=== PATIENT | female | born 1940 | race Caucasian/White ===

== ENCOUNTER → 2016-06-24 10:58 | Outpatient (CLI) | payer MEDICARE ==
[2013-11-19 06:38] VITALS: BMI 32.3
[~2016-06-24 10:58] MED LIST: CARDURA2 MG PO; HYZAAR 100-25 T1 TAB PO; NORVASC10 MG PO; RELAFEN500 MG PO; SYNTHROID150 MCG PO; ULTRAM50 MG PO; VITAMIN B-1000 MCG/M IM; ZESTORETIC 20-1 EACH PO
== END | disposition home or self-care (01) ==
LOC: D.CT 10:58
DX: R10.32 Left lower quadrant pain (principal)

== ENCOUNTER 2017-08-23 11:01 | Outpatient (CLI) | payer MEDICARE ==
[~2017-08-23] VITALS: Ht 165.1 cm; Wt 80.0 kg
--- NOTE | ~2017-08-23 | OP ---
PATIENT NAME: QUITA TERRY MEDICAL RECORD: [id number] :38 LOCATION:D.CAT ADMISSION DATE: SURGEON: HI SMITH MD DATE OF OPERATION: 08/23/2017 PROCEDURE: Left heart catheterization, selective coronary angiography, right radial approach. CATHETERS: Right radial sheath, Hinsdale catheter for diagnostics. The procedure was well tolerated, the patient returned to hobbs, sheath removed after intervention. FINDINGS: Left ventriculography in 30-degree GONZALEZ view: Normal wall motion, normal systolic function. CORONARY ANATOMY: LEFT MAIN: Left main is free of disease. LAD: LAD is free of disease. CIRCUMFLEX: Circumflex has about 80% stenosis in its mid portion, fairly discrete. RIGHT CORONARIES: Somewhat codominant system with right being smaller artery at 70% to 80% stenosis in mid portion. PLAN: Intervention of circumflex ____ in a staged fashion. An EBU 3.5 guiding catheter provided excellent guide catheter support followed by 300 cm Whisper wire placed across all occluded circumflex down this portion of vessel. Stent deployed was a ____ 12-mm Ihsan drug-eluting stent up to 14 atmospheres for 45 seconds. Final injection shows excellent resolution of 80% to 90% stenosis, no significant residual. AUDRA flow was 3 throughout the procedure. Integrilin was used in the case. Sheath was closed with a TR band. Plavix was loaded in the lab. TRANSINT:[id number] Voice Confirmation ID: [id number] DOCUMENT ID: [id number] HI SMITH MD at 1214 CC: [id number] DICTATION DATE: 08/23/17 1420 MANAGER RFID: 08/23/17 [id number] DEP CLI 08/23/17 [facility] [address] [id number]
--- NOTE | ~2017-08-23 | HEMODYNAMI ---
PATIENT:QUITA TERRY MEDICAL RECORD: [id number] : 38 LOCATION:[facility]AN ADMISSION DATE: 08/23/17 Generatedon:08/23/201714:24 Patient name: QUITA TERRY Patient #: [id number] SSN: [id number] : 1940 Date of study: 08/23/2017 Page: Of Hemodynamic Procedure Report Patient Data Patient Demographics Procedure consent was obtained First Name: QUITA Gender: Female Last Name: MARA : 1940 Middle Initial: C Age: 77 year(s) Patient #: [id number] Race: SSN: [id number] Additional ID: [id number] Contact details Address: [address] [place] [address] State: [place] City: [place] Zip code: [address] Admission Admission Data Admission Date: 08/23/2017 Admission Time: 11:01 Arrival Date: 08/23/2017 Arrival Time: 0:00 Admit Source: Other Insurance Payor: Medicare Height (in.): 64 BSA: 1.86 (m2) Height (cm.): 162.56 BMI: 30.38 (kg/m2) Weight (lbs.): 177 Weight (kg.): 80.29 Lab Results Lab Result Date: 08/23/2017 Lab Result Time: 0:00 Biochemistry Name Units Result Min Max BUN mg/dl 22 --(----)-* 7 18 Creatinine mg/dl 1.1 --(--*-)-- 0.6 1.3 CBC Name Units Result Min Max Hemoglobin g/dl 13 -*(----)-- 13.5 17.5 Procedure Procedure Types Cath Procedure Diagnostic Procedure [facility] w/Coronaries Sedation Charges Moderate Sedation up to 15 minutes PCI Procedure Coronary Stent Coronary Stent Initial Procedure Description Procedure Date Procedure Date: 08/23/2017 Procedure Start Time: 13:55 Procedure End Time: 14:18 Procedure Staff Name Function Korey Dodd MD Performing Physician Jody Avery RT Monitor Mary Gilliam RT Scrub Ric Tavarez RN Nurse Procedure Data Cath Procedure Fluoroscopy Diagnostic fluoroscopy Total fluoroscopy Time: 5.5 time: 5.5 min min Diagnostic fluoroscopy Total fluoroscopy dose: 650 dose: 650 mGy mGy Contrast Material Contrast Material Type Amount (ml) Isovue 300 67 Entry Location Entry Primary Successful Side Size Upsize Upsize Entry Closure Succes sful Closure Location (Fr) 1 (Fr) 2 (Fr) Remarks Device Remarks Radial Right 6 Fr Exoseal artery Short Estimated blood loss: 5 ml Diagnostic catheters Device Type Used For End Catheter Placement DIAGNOSTIC [place] 110cm 5 Multi-vessel Fr catheter ([id number]) Angiography Procedure Complications No complications Procedure Medications Medication Administration Route Dosage Oxygen NC 2 l/min Lidocaine 2% added to field 20 Heparin Flush Bag added to field 2 bags (1000units/500ml NS) 0.9% NaCl I.V. 100 ml/hr Radial Cocktail I.A. 1 syringe (Verapomil 2mg/Nitro 400mcg/Heparin 1500units) Versed I.V. 1 mg Fentanyl I.V. 50 mcg Heparin Bolus I.V. 4000 units Integrilin (Bolus I.V. 7.3 ml 2mg/ml) Versed I.V. 1 mg Fentanyl I.V. 50 mcg Plavix P.O. 600 mg Hemodynamics Rest BSA: 1.86 (m2) HGB: 13 (g/dl) O2 Consumption: Estimated: 148.96 (ml/min) O2 Cons umption indexed: Estimated:80.09 (ml/min/m) Heart Rate: 43 (bpm) Pressure Samples Time Site Value (mmHg) Purpose Heart Use Rate(bpm) 13:59 LV 179/-10,-11 Snapshot 51 Gradients Valve Time Site Site Mean SEP/DFP Peak To Heart Use 1 2 (mmHg) (sec/min) Peak Rate (mmHg) (bpm) Aortic 14:00 LV AO 31 Snapshots Pre Cath Intra NCS Post Cath Vital Signs Time Heart Resp SPO2 etCO2 NIBP (mmHg) Rhythm Pain Sedation Rate (ipm) (%) (mmHg) Status Level (bpm) 13:10:36 41 14 98 0 189/79(165) NSR 0 (11) 10(A) , No pain 13:16:14 42 12 94 0 193/75(164) NSR 0 (11) 10(A) , No pain 13:21:42 42 13 94 0 191/75(158) NSR 0 (11) 10(A) , No pain 13:27:24 41 13 94 0 193/72(160) NSR 0 (11) 10(A) , No pain 13:32:58 40 15 96 0 196/76(162) NSR 0 (11) 10(A) , No pain 13:37:36 40 16 94 0 192/75(164) NSR 0 (11) 10(A) , No pain 13:43:00 43 13 94 0 192/85(167) NSR 0 (11) 10(A) , No pain 13:48:50 41 13 92 0 186/73(148) NSR 0 (11) 10(A) , No pain 13:53:22 41 15 96 0 175/77(147) NSR 0 (11) 10(A) , No pain 13:57:53 50 13 94 0 148/59(97) NSR 0 (11) 9(A) , No pain 14:02:09 50 15 97 11.9 119/56(104) NSR 0 (11) 9(A) , No pain 14:06:25 46 15 98 29.9 132/63(104) NSR 0 (11) 9(A) , No pain 14:10:29 46 16 98 28.4 107/61(95) NSR 0 (11) 9(A) , No pain 14:15:28 49 9 98 17.9 Measuring NSR 0 (11) 9(A) , No pain 14:15:36 48 10 98 17.9 147/71(127) NSR 0 (11) 10(A) , No pain Medications Time Medication Route Dose Verified Delivered Reason Note s Effectiveness by by 13:45:17 Oxygen NC 2 l/min Korey Larios used for [facility] Jim Tavarez RN procedure 13:45:25 Lidocaine 2% added 20ml Korey Arzolaory for local to vial Ju [facility] anesthetic field MD [place] 13:45:43 Heparin Flush added 2 bags Korey Larios used for Bag to [facility] Jim Tavarez metal mover (1000units/500ml field [place] NS) 13:45:51 0.9% NaCl I.V. 100 Korey Buffie Per physician ml/hr [facility] Jim Tavarez RN, MD 13:51:20 Versed I.V. 1 mg Korey Naikie for sedation [facility] Jim Tavarez RN, MD 13:51:25 Fentanyl I.V. 50 mcg Korey Niakie for sedation [facility] Jim Tavarez RN, MD 13:56:05 Radial Cocktail I.A. 1 Korey Nair for (Verapomil syringe [facility] Jim Dodd vasodilation 2mg/Nitro MD [place] 400mcg/Heparin 1500units) 14:05:38 Heparin Bolus I.V. 4000 Korey Larios for veri fied units [facility] Jim Tavarez RN anticoagulation with dr MD barnett 14:07:12 Integrilin I.V. 7.3 ml Korey Larios for (Bolus 2mg/ml) [facility] Jim Tavarez RN antiplatelet therapy 14:11:27 Versed I.V. 1 mg Korey Larios for sedation [facility] Jim Tavarez RN, MD 14:11:32 Fentanyl I.V. 50 mcg Korey Larios for sedation [facility] Jim Tavarez RN, MD 14:17:53 Plavix P.O. 600 mg Korey L[address] for [facility] Jim Tavarez RN antiplatelet therapy Procedure Log Time Note 12:49:37 Diagnostic Cath Status : Elective 12:49:55 Mary Gilliam RT(R) sent for patient. Start room use. 12:49:55 Time tracking: Regular hours (M-F 7:00 - 5:00) 12:50:00 Plan of Care:Hemodynamics will remain stable., Cardiac rhythm will remain stable., Comfort level will be maintained., Respiratory function will remain adequate., Patient/ family verbilizes understanding of procedure., Procedure tolerated without complication., Recovers from procedure without complications.. 12:55:04 Informed consent obtained and on chart 12:55:14 Insurance Payor : Medicare 12:55:15 Arrival Date: 08/23/2017 12:00:00 AM 12:55:17 Admit Source: Other 12:55:31 Patient Height : 64 inches 12:55:35 Patient Weight : 177 lbs 12:57:12 Lab Result : Hemoglobin 13 g/dl 12:57:12 Lab Result : Creatinine 1.1 mg/dl 12:57:12 Lab Result : BUN 22 mg/dl 12:57:55 Patient received from Pre/Post Procedure Room to [facility] 2 Alert and oriented. Tansferred to table in Supine position. 12:57:56 Warm blankets applied, and caroline hugger turned on for patient comfort. 12:57:57 Correct patient and procedure confirmed by team. 12:57:57 ECG and BP/O2 sat monitors applied to patient. 13:08:12 Vital chart was started 13:08:13 Baseline sample Acquired. 13:08:17 Rhythm: sinus bradycardia 13:08:19 Full Disclosure recording started 13:08:25 H&P Date Dictated: 08/23/2017 Within 30 days and on chart., H&P Addendum completed by physician on day of procedure. (MUST COMPLETE FOR ALL OUTPATIENTS). 13:08:26 Pre-procedure instructions explained to patient. 13:08:27 Pre-op teaching completed and patient verbalized understanding. 13:08:28 Family in waiting room. 13:08:30 Patient NPO since Midnight. 13:08:32 Is the patient allergic to Iodine/contrast media? No. 13:08:34 Was the patient premedicated? No 13:08:39 Is patient on blood thinner?No 13:09:04 Patient diabetic? No. 13:09:07 Previous problem with sedation/anesthesia? No ? 13:09:08 Snore? Yes 13:09:09 Sleep apnea? No 13:09:10 Deviated septum? No 13:09:11 Opens mouth fully? No 13:09:12 Sticks out tongue? Yes 13:09:14 Airway obstruction? No ? 13:09:20 Dentures? Yes in tight 13:09:24 Pre procedure: right dorsailis pedis pulse 1+ Palpable, but thready & weak; easily obliterated 13:09:26 Pre procedure: left dorsailis pedis pulse 1+ Palpable, but thready & weak; easily obliterated 13:09:28 Patient pain scale 0/10 ?. 13:09:35 IV patent on arrival in left forearm with 0.9% NaCl at [facility]. 13:09:37 Lab results completed and on chart. 13:09:47 Right Radial & Right Groin area was prepped with chlora-prep and draped in sterile fashion 13:09:48 Alarms reviewed by R. N. 13:09:48 Sharps counted by scrub and verified by R.N. 13:20:10 Zero performed for pressure channel P1 13:37:16 Physician arrived 13:37:16 --------ALL STOP TIME OUT------ 13:37:17 Final Timeout: patient, procedure, and site verified with staff and physician. All members of the team are in agreement. 13:37:21 Right Radial & Right Groin site verified by team. 13:37:23 Physical assessment completed. ASA score P 2 - A patient with mild systemic disease as per Korey Dodd MD. 13:37:27 Sedation plan: IV Moderate Sedation Medication:Versed, Fentanyl 13:38:11 Use device set Radial Dx or PCI 13:38:12 ACIST Syringe (61563) opened to sterile field. 13:38:13 Medline Cath Pack ([id number]) opened to sterile field. 13:38:13 Bag Decanter (2002S) opened to sterile field. 13:38:13 DIAGNOSTIC WIRE .035 260cm J wire (506512) opened to sterile field. 13:38:14 ACIST Hand Control (04815) opened to sterile field. 13:38:14 ACIST Manifold (08240) opened to sterile field. 13:38:15 Tegaderm 4 x 4 (1626W) opened to sterile field. 13:38:16 MBrace Wrist Support ([id number]) opened to sterile field. 13:38:17 SHEATH 6Fr Prelude Radial ([id number]) opened to sterile field. 13:45:17 Oxygen 2 l/min NC was administered by Ric Tavarez RN; used for procedure; 13:45:25 Lidocaine 2% 20ml vial added to field was administered by Korey Dodd MD; for local anesthetic; 13:45:43 Heparin Flush Bag (1000units/500ml NS) 2 bags added to field was administered by Ric Tavarez RN; used for procedure; 13:45:51 0.9% NaCl 100 ml/hr I.V. was administered by Ric Tavarez RN; Per physician; 13:51:20 Versed 1 mg I.V. was administered by Ric Tavarez RN; for sedation; 13:51:25 Fentanyl 50 mcg I.V. was administered by Ric Tavarez RN; for sedation; 13:55:00 Procedure started. 13:55:11 Local anesthetic to right radial artery with Lidocaine 2% by Korey Dodd MD.INITIAL ACCESS ONLY 13:55:26 A 6 Fr Short sheath was inserted into the Right Radial artery 13:55:57 A DIAGNOSTIC [place] 110cm 5 Fr catheter ([id number]) was advanced over the wire and used for Multi-vessel Angiography. 13:56:05 Radial Cocktail (Verapomil 2mg/Nitro 400mcg/Heparin 1500units) 1 syringe I.A. was administered by Korey Dodd MD; for vasodilation; 13:59:59 LV hemodynamics recorded. 14:00:00 LV gram done using GONZALEZ 14:00:03 Injector settings: Ml/sec: 5, Volume: 15, 14:00:09 EF : 55 % 14:01:16 LCA angiography performed. 14:01:18 Injector settings: Ml/sec: 3, Volume: 6, 14:02:01 RCA angiography performed. 14:02:04 Injector settings: Ml/sec: 3, Volume: 6, 14:02:48 Catheter removed. 14:03:09 GUIDE 6FR EBU 3.5 catheter ([id number]) opened to sterile field. 14:03:09 WHISPER 300cm guide wire ([id number]) opened to sterile field. 14:03:10 INFLATOR Merit BasixCompak (LB1445) opened to sterile field. 14:03:50 Proceeding to intervention. 14:04:02 6 Fr ebu 3.5 guide catheter was inserted over the wire 14:04:08 whisper wire advanced. 14:05:38 Heparin Bolus 4000 units I.V. was administered by Ric Tavarez RN; for anticoagulation; verified with dr barnett 14:07:12 Integrilin (Bolus 2mg/ml) 7.3 ml I.V. was administered by Ric Tavarez RN; for antiplatelet therapy; 14:07:16 Wire advanced across lesion. 14:11:27 Versed 1 mg I.V. was administered by Ric Tavarez RN; for sedation; 14:11:28 Place stent Inflation Number: 1 A PARK OTW 3.5 x 12 stent ([id number]) was prepped and advanced across the Mid CX. The stent was deployed at 12 MATT for 0:30 (min:sec). 14:11:32 Fentanyl 50 mcg I.V. was administered by Ric Tavarez RN; for sedation; 14:12:15 Stent catheter was removed intact over wire. 14:12:15 Wire removed. 14:12:16 Guide catheter removed. 14:13:50 Sheath removed intact; hemostasis achieved with Exoseal to the Right Radial artery. 14:13:51 Procedure ended.(Physican Out) 14:14:22 Fluoroscopy time 05.50 minutes. 14:14:27 Flurop Dose total: 650 14:14:27 Fluoroscopy dose: 650 mGy 14:15:27 Contrast amount:Isovue 300 67ml. 14:15:29 Sharps counted by scrub and verified by R.N. 14:15:33 TR band inflated with 10cc of air. 14:15:36 Insertion/operative site no bleeding no hematoma. 14:15:44 Post right radial artery:stable 14:15:45 Post Procedure Pulses reassessed and unchanged 14:16:05 Post procedure rhythm: unchanged. 14:16:08 Estimated blood loss: 5 ml 14:16:10 Post procedure instruction explained to patient.Patient verbalizes understanding. 14:16:12 Patient needs reinforcement of post procedure teaching. 14:16:39 Procedure type changed to Cath procedure, Diagnostic procedure, LHC, LHC w/Coronaries, Sedation Charges, Moderate Sedation up to 15 minutes, PCI procedure, Coronary Stent, Coronary Stent Initial 14:16:41 Procedure and supply charges have been captured, reviewed, submitted and are correct. 14:16:50 Procedure Complication : No complications 14:17:02 Vital chart was stopped 14:17:36 See physician's report for complete and final results. 14:17:42 Report given to Pre/Post Procedure Room. 14:17:46 Patient transfered to Pre/Post Procedure Room with Stretcher. 14:17:53 Plavix 600 mg P.O. was administered by Ric Tavarez RN; for antiplatelet therapy; 14:18:49 Procedure ended. 14:18:49 Full Disclosure recording stopped 14:20:12 TR BAND Standard ([id number]) opened to sterile field. 14:20:23 ACC-PCI Only Patient was given prescriptions, or instructed by Korey Dodd MD to start/continue the following medications upon discharge: Plavix 14:20:26 End room use (Document Last) Intervention Summary Intervention Notes Time ActionType Lesion and Equipment Action# Pressure Duration Attributes Used 14:11:28 Place stent Mid CX PARK OTW 3.5 1 12 00:30 x 12 stent ([id number]) Device Usage Item Name Manufacture Quantity Catalog Number Hospital Part Current Minimal Lot# / Charge Number Stock Stock Serial# Code ACIST Syringe Acist 1 10306 [id number] 947780 876698 20 (86519) Medical [employer] Inc Medline Cath Cardinal 1 [id number] 330965 37719 845959 5 Pack Health ([id number]) Bag Decanter Microtek 1 2001S 031501 48169 137561 5 (2001S) Medical Inc. DIAGNOSTIC WIRE St [place] 1 552374 362964 357127 835633 30 .035 260cm J wire (438585) ACIST Hand Acist 1 94407 130878 119657 394916 5 Control (20805) [employer] Inc ACIST Manifold Acist 1 37343 731695 570463 246860 5 (22619) Medical Systems Inc Tegaderm 4 x 4 3M 1 1626W 059331 671457 308968 5 (1626W) MBrace Wrist Advanced 1 140-0250-00 192663 45569 983530 5 Support Vascular ([id number]) Dynamics SHEATH 6Fr Merit 1 [id number] 401352 107833 576264 5 Prelude Radial Medical ([id number]) DIAGNOSTIC Terumo 1 40-5013 539055 797607 767495 5 [place] 110cm 5 Fr catheter (486668) GUIDE 6FR EBU Medtronic 1 [id number] 916885 14076 369355 3 3.5 catheter (JM2TPC54) WHISPER 300cm [place] 1 [id number] 954164 082297 915658 5 guide wire Vascular ([id number]) INFLATOR Merit Merit 1 [id number] 267073 742519 913268 15 BasixCompak Medical (JK8230) PARK OTW 3.5 x Medtronic 1 [id number] 986191 5482111 889631 5 [id number] 12 stent ([id number]) TR BAND Terumo 1 QHR56-[id number] 616023 897573 085895 40 Standard ([id number]) Signature Audit [place] Stage Time Signature Unsigned Intra-Procedure 08/23/2017 Jody Avery 2:24:22 PM RT(R) Signatures Monitor : Jody Avery RT Signature : Date : Time : [place] [id number] [place] [address]
[2017-08-23] MEDS ORDERED: KLOR-CON 88 MEQ PO (11:28)
[2017-08-23] MEDS ORDERED: FUROSEMIDE20 MG PO (11:30)
[2017-08-23] MEDS ORDERED: HCTZ25 MG PO (11:30)
[2017-08-23] MEDS ORDERED: CATAPRES0.1 MG PO (11:31)
[2017-08-23 11:35] VITALS: BP 198/57; Ht 165.1 cm; Wt 80.0 kg
[2017-08-23 11:49] LABS: BASOPHILS 0.8 % (0-2); EOSINOPHILS 1.3 % (0-7); HEMATOCRIT 37.4 % (36.0-48.0); LYMPHOCYTES 35.5 % (15-50); MCH 32.4 pg (26.0-34.0); MCHC 34.8 g/dL (31.0-37.0); MCV 93.3 fL (80.0-100.0); MEAN PLATELET VOLUME 11.3 fL (7.4-10.4); MONOCYTES 10.3 % (2-11); NEUTROPHILS 52.1 % (40-80); PLATELET COUNT 138 10x3/uL (130-400); RBC 4.01 10x6/uL (4.00-5.40); RDW 12.6 % (11.5-14.5); WBC 3.9 10x3/uL (4.8-10.8)
[2017-08-23 12:18] LABS: ANION GAP 12.1 mmol/L (8-16); CALCIUM 9.7 mg/dL (8.5-10.1); CARBON DIOXIDE 29.2 mmol/L (21.0-32.0); CREATININE - SERUM 1.1 mg/dL (0.6-1.3); POTASSIUM - SERUM 3.3 mmol/L (3.5-5.1)
[2017-08-23] MEDS ORDERED: PLAVIX75 MG PO (15:21)
== END 2017-08-23 18:04 | disposition home or self-care (01) ==
LOC: D.CATH 11:01
PROVIDERS: Internal Medicine Interventional Cardiology
DX: I25.119 Atherosclerotic heart disease of native coronary artery with unspecified angina pectoris (principal); R60.9 Edema, unspecified; I10 Essential (primary) hypertension; Z01.812 Encounter for preprocedural laboratory examination
CPT/HCPCS: 93458; C9600

== ENCOUNTER 2017-09-06 10:52 | Outpatient (CLI) | payer MEDICARE ==
[~2017-09-06] VITALS: Ht 165.1 cm; Wt 80.0 kg
--- NOTE | ~2017-09-06 | HEMODYNAMI ---
PATIENT:QUITA TERRY MEDICAL RECORD: [id number] : 38 LOCATION:[facility] ADMISSION DATE: 09/06/17 Generatedon:09/06/201714:44 Patient name: QUITA TERRY Patient #: [id number] SSN: [id number] : 1940 Date of study: 09/06/2017 Page: Of Hemodynamic Procedure Report Patient Data Patient Demographics Procedure consent was obtained First Name: QUITA Gender: Female Last Name: MARA : 1940 Middle Initial: C Age: 77 year(s) Patient #: [id number] Race: SSN: [id number] Additional ID: [id number] Contact details Address: [address] [place] [address] State: [place] City: [place] Zip code: [address] Past Medical History Allergies Allergen Reaction Date Comments Reported Aspirin 09/06/2017 Admission Admission Data Admission Date: 09/06/2017 Admission Time: 10:52 Procedure Procedure Types Cath Procedure Diagnostic Procedure Sedation Charges Moderate Sedation up to 15 minutes PCI Procedure Coronary Stent Coronary Stent Initial Procedure Description Procedure Date Procedure Date: 09/06/2017 Procedure Start Time: 14:27 Procedure End Time: 14:43 Procedure Staff Name Function Korey Dodd MD Performing Physician Marleny Vila RT Monitor Ric Tavarez RN Nurse Waylon Amanda RT Scrub Procedure Data Cath Procedure Fluoroscopy Diagnostic fluoroscopy Total fluoroscopy Time: 3.2 time: 3.2 min min Diagnostic fluoroscopy Total fluoroscopy dose: 171 dose: 171 mGy mGy Contrast Material Contrast Material Type Amount (ml) Isovue 370 26 Entry Location Entry Primary Successful Side Size Upsize Upsize Entry Closure Hooper ccessful Closure Location (Fr) 1 (Fr) 2 (Fr) Remarks Device Remarks Radial Right 6 Fr Mechanical artery Short Compression Estimated blood loss: 5 ml Procedure Complications No complications Procedure Medications Medication Administration Route Dosage Oxygen NC 2 l/min Lidocaine 2% added to field 20 Heparin Flush Bag added to field 2 bags (1000units/500ml NS) 0.9% NaCl I.V. 100 ml/hr Versed I.V. 2 mg Fentanyl I.V. 100 mcg Radial Cocktail I.A. 1 syringe (Verapomil 2mg/Nitro 400mcg/Heparin 1500units) Versed I.V. 1 mg Fentanyl I.V. 50 mcg Heparin Bolus I.V. 4000 units Versed I.V. 1 mg Fentanyl I.V. 50 mcg Hemodynamics Rest Heart Rate: 48 (bpm) Snapshots Pre Cath Intra NCS Post Cath Vital Signs Time Heart Resp SPO2 etCO2 NIBP (mmHg) Rhythm Pain Sedation Rate (ipm) (%) (mmHg) Status Level (bpm) 14:17:15 41 17 100 38.2 201/76(168) NSR 0 (11) 10(A) , No pain 14:23:07 40 16 100 31.4 181/74(135) NSR 0 (11) 10(A) , No pain 14:28:41 43 11 97 42 166/66(141) NSR 0 (11) 9(A) , No pain 14:33:01 48 15 97 18.7 131/65(91) NSR 0 (11) 9(A) , No pain 14:37:19 50 18 97 24.7 127/66(91) NSR 0 (11) 9(A) , No pain 14:42:43 50 15 99 22.5 138/65(116) NSR 0 (11) 10(A) , No pain Medications Time Medication Route Dose Verified Delivered Reason Note s Effectiveness by by 14:14:26 Oxygen NC 2 l/min Korey Larios used for [facility] Jim Tavarez RN procedure 14:14:34 Lidocaine 2% added 20ml Korey Nair for local to vial [facility] anesthetic field MD [facility] 14:14:39 Heparin Flush added 2 bags Korey Nair used for Bag to [facility] procedure (1000units/500ml field MD [place] NS) 14:14:48 0.9% NaCl I.V. 100 Korey Naikie Per physician ml/hr [facility] Jim Tavarez RN, MD 14:22:39 Versed I.V. 2 mg Korey Larios for sedation [facility] Tavarez RN, MD 14:22:44 Fentanyl I.V. 100 mcg Korey Larios for sedation [facility] Tavarez RN, MD 14:26:43 Versed I.V. 1 mg Korey Larios for sedation [facility] Tavarez RN, MD 14:26:47 Fentanyl I.V. 50 mcg Korey Larios for sedation [facility] Jim Tavarez RN, MD 14:30:10 Radial Cocktail I.A. 1 Korey Nair for (Verapomil syringe [facility] Jim Dodd vasodilation 2mg/Nitro MD [place] 400mcg/Heparin 1500units) 14:31:09 Heparin Bolus I.V. 4000 Korey Larios for veri fied units [facility] Jim Tavarez RN anticoagulation with dr MD barnett 14:39:49 Versed I.V. 1 mg Korey Larios for sedation [facility] Jim Tavarez RN, MD 14:39:52 Fentanyl I.V. 50 mcg Korey Larios for sedation [facility] Jim Tavarez RN, MD Procedure Log Time Note 13:57:54 Rci Tavarez RN sent for patient. Start room use. 13:57:55 Time tracking: Regular hours (M-F 7:00 - 5:00) 13:57:59 Plan of Care:Hemodynamics will remain stable., Cardiac rhythm will remain stable., Comfort level will be maintained., Respiratory function will remain adequate., Patient/ family verbilizes understanding of procedure., Procedure tolerated without complication., Recovers from procedure without complications.. 14:03:25 Patient received from Pre/Post Procedure Room to [facility] 2 Alert and oriented. Tansferred to table in Supine position. 14:03:26 Warm blankets applied, and caroline hugger turned on for patient comfort. 14:03:27 Correct patient and procedure confirmed by team. 14:03:28 Signed procedure consent form obtained from patient. 14:03:28 ECG and BP/O2 sat monitors applied to patient. 14:03:29 Full Disclosure recording started 14:14:26 Oxygen 2 l/min NC was administered by Ric Tavarez RN; used for procedure; 14:14:34 Lidocaine 2% 20ml vial added to field was administered by Korey Dodd MD; for local anesthetic; 14:14:39 Heparin Flush Bag (1000units/500ml NS) 2 bags added to field was administered by Korey Dodd MD; used for procedure; 14:14:48 0.9% NaCl 100 ml/hr I.V. was administered by Ric Tavarez RN; Per physician; 14:14:53 Vital chart was started 14:14:59 Rhythm: sinus bradycardia 14:15:19 H&P Date Dictated: 08/10/2017 Within 30 days and on chart., H&P Addendum completed by physician on day of procedure. (MUST COMPLETE FOR ALL OUTPATIENTS). 14:15:20 Pre-procedure instructions explained to patient. 14:15:21 Pre-op teaching completed and patient verbalized understanding. 14:15:24 Family in patients room. 14:15:25 Patient NPO since Midnight. 14:15:34 Patient allergic to Aspirin 14:15:36 Is the patient allergic to Iodine/contrast media? No. 14:15:38 Is patient on blood thinner?Yes 14:15:59 ACC The patient was administered the following blood thiners within the last 24 hours: ACCPlavix 14:16:01 Patient diabetic? No. 14:16:42 Previous problem with sedation/anesthesia? No ? 14:16:43 Snore? Yes 14:16:44 Sleep apnea? No 14:16:45 Deviated septum? No 14:16:46 Opens mouth fully? Yes 14:16:46 Sticks out tongue? Yes 14:16:48 Airway obstruction? No ? 14:16:50 Dentures? No ? 14:16:53 Pre procedure: right dorsailis pedis pulse 2+ Normal; easily identifiable; not easily obliterated 14:16:55 Modified Curtis's test Ulnar < 7 seconds 14:16:56 Patient pain scale 0/10 ?. 14:17:03 IV patent on arrival in left forearm with 0.9% NaCl at O. 14:17:05 Lab results completed and on chart. 14:17:08 Right Radial & Right Groin area was prepped with chlora-prep and draped in sterile fashion 14:17:09 Alarms reviewed by R. N. 14:17:09 Sharps counted by scrub and verified by R.N. 14:17:11 Use device set Radial Dx or PCI 14:17:12 ACIST Syringe (42097) opened to sterile field. 14:17:13 Medline Cath Pack ([id number]) opened to sterile field. 14:17:13 Bag Decanter (2002) opened to sterile field. 14:17:14 DIAGNOSTIC WIRE .035 260cm J wire (823378) opened to sterile field. 14:17:14 ACIST Hand Control (25168) opened to sterile field. 14:17:15 ACIST Manifold (19262) opened to sterile field. 14:17:16 Tegaderm 4 x 4 (1626W) opened to sterile field. 14:17:16 MBrace Wrist Support ([id number]) opened to sterile field. 14:17:18 SHEATH 6Fr Prelude Radial ([id number]) opened to sterile field. 14:17:26 Use device set SARAH PCI 14:17:33 WHISPER 300cm guide wire ([id number]) opened to sterile field. 14:17:34 INFLATOR Merit BasixCompak (OQ3415) opened to sterile field. 14:20:00 Baseline sample Acquired. 14:20:03 Final Timeout: patient, procedure, and site verified with staff and physician. All members of the team are in agreement. 14:20:06 Right Radial site verified by team. 14:20:09 Physical assessment completed. ASA score P 2 - A patient with mild systemic disease as per Korey Dodd MD. 14:20:11 Sedation plan: IV Moderate Sedation Medication:Versed, Fentanyl 14:22:39 Versed 2 mg I.V. was administered by Ric Tavarez RN; for sedation; 14:22:44 Fentanyl 100 mcg I.V. was administered by Ric Tavarez RN; for sedation; 14::43 Versed 1 mg I.V. was administered by Ric Tavarez RN; for sedation; 14::47 Fentanyl 50 mcg I.V. was administered by Ric Tavarez RN; for sedation; 14::50 Zero performed for pressure channel P1 14:26:53 GUIDE 6FR HS I catheter (LA6HSI) opened to sterile field. 14:27:30 Procedure started. 14:27:56 Local anesthetic to right radial artery with Lidocaine 2% by Korey Dodd MD.INITIAL ACCESS ONLY 14:29:46 A 6 Fr Short sheath was inserted into the Right Radial artery 14:30:10 Radial Cocktail (Verapomil 2mg/Nitro 400mcg/Heparin 1500units) 1 syringe I.A. was administered by Korey Dodd MD; for vasodilation; 14:31:09 Heparin Bolus 4000 units I.V. was administered by Buffie Tavarez RN; for anticoagulation; verified with dr barnett 14:32:11 [place] wire advanced. 14:33:06 6 Fr HS I guide catheter was inserted over the wire 14:35:41 Whisper wire advanced. 14:37:32 Place stent Inflation Number: 1 A PARK OTW 3.0 x 18 stent ([id number]) was prepped and advanced across the Mid RCA. The stent was deployed at 16 MATT for 0:30 (min:sec). 14:37:57 Stent catheter was removed intact over wire. 14:37:57 Wire removed. 14:37:57 Guide catheter removed. 14:38:08 Sheath removed intact; hemostasis achieved with Mechanical Compression to the Right Radial artery. 14:38:10 Procedure ended.(Physican Out) 14:38:19 Fluoroscopy time 03.20 minutes. 14:38:23 Flurop Dose total: 171 14:38:23 Fluoroscopy dose: 171 mGy 14:38:32 Contrast amount:Isovue 370 26ml. 14:38:34 Sharps counted by scrub and verified by R.N. 14:38:37 TR band inflated with 12cc of air. 14:38:39 Insertion/operative site no bleeding no hematoma. 14:38:45 Post right radial artery:stable, clean and dry 14:38:48 Post Procedure Pulses reassessed and unchanged 14:38:55 Post-procedure physical assessment completed. ASA score P 2 - A patient with mild systemic disease as per Korey Dodd MD. 14:38:58 Post procedure rhythm: unchanged. 14:39:01 Estimated blood loss: 5 ml 14:39:02 Post procedure instruction explained to patient.Patient verbalizes understanding. 14:39:02 Patient needs reinforcement of post procedure teaching. 14:39:23 Procedure type changed to Cath procedure, Diagnostic procedure, Sedation Charges, Moderate Sedation up to 15 minutes, PCI procedure, Coronary Stent, Coronary Stent Initial 14:39:28 Procedure Complication : No complications 14:39:30 See physician's report for complete and final results. 14:39:49 Versed 1 mg I.V. was administered by Ric Tavarez RN; for sedation; 14:39:50 TR BAND Standard ([id number]) opened to sterile field. 14:39:52 Fentanyl 50 mcg I.V. was administered by Ric Tavarez RN; for sedation; 14:40:11 Procedure and supply charges have been captured, reviewed, submitted and are correct. 14:42:57 Vital chart was stopped 14:42:59 Report given to Pre/Post Procedure Room. 14:43:02 Patient transfered to Pre/Post Procedure Room with Stretcher. 14:43:13 Procedure ended. 14:43:13 Full Disclosure recording stopped 14:43:21 End room use (Document Last) Intervention Summary Intervention Notes Time ActionType Lesion and Equipment Action# Pressure Duration Attributes Used 14:37:32 Place stent Mid RCA PARK OTW 3.0 1 16 00:30 x 18 stent ([id number]) Device Usage Item Name Manufacture Quantity Catalog Number Hospital Part Current Minimal Lot# / Charge Number Stock Stock Serial# Code ACIST Syringe Acist 1 81822 965275 368592 068505 20 (19237) Medical Systems Inc Medline Cath Cardinal 1 [id number] 424218 31385 520324 5 Pack Health ([id number]) Bag Decanter Microtek 1 2001S 378131 44265 334674 5 (2001S) Medical Inc. DIAGNOSTIC WIRE St [place] 1 714089 220864 698084 381468 30 .035 260cm J wire (409206) ACIST Hand Acist 1 09933 719984 743312 919366 5 Control (83036) Medical Systems Inc ACIST Manifold Acist 1 66913 314638 421062 121412 5 (95523) Medical Systems Inc Tegaderm 4 x 4 3M 1 1626W 361315 677523 481885 5 (1626W) MBrace Wrist Advanced 1 140-0250-00 090873 32620 533546 5 Support Vascular ([id number]) Dynamics SHEATH 6Fr Merit 1 [id number] 260841 364138 583593 5 Prelude Radial Medical ([id number]) WHISPER 300cm Hammonds 1 [id number] 547216 421284 468564 5 guide wire Vascular (7940941TB) INFLATOR Merit Merit 1 IT1875 709873 944953 242662 15 BasixFilter SquadmnTrimel Pharmaceuticals Medical (KE2891) GUIDE 6FR HS I Medtronic 1 LA6HSI 964893 66715 452123 1 catheter (LA6HSI) PARK OTW 3.0 x Medtronic 1 [id number] 753697 0982644 757937 5 [id number] 18 stent ([id number]) TR BAND Terumo 1 [id number] 506127 913921 495525 40 Standard (GCO26NWT) Signature Audit [place] Stage Time Signature Unsigned Intra-Procedure 09/06/2017 Marleny 2:44:26 PM Counts RT(R) Signatures Monitor : Marleny Signature : Counts RT Date : Time : [address] [place] [address]
--- NOTE | ~2017-09-06 | OP ---
PATIENT NAME: QUITA TERRY MEDICAL RECORD: [id number] :38 LOCATION:D.CAT ADMISSION DATE: SURGEON: HI SMITH MD DATE OF OPERATION: 09/06/2017 PTCA AND STENT REPORT For catheterization report, please see previously dictated. DESCRIPTION OF PROCEDURE: After a radial sheath was placed in the right radial artery, a hockey stick guide catheter provided excellent guide catheter support, followed by 300 cm Whisper wire was placed across 80% stenoses right coronary down this distal portion of vessel. Stent deployed with 3.0 x 18 mm Ihsan drug-eluting stent up to 14 atmospheres for 45 seconds. Following this, there was excellent resolution of 80% diffuse stenosis, no significant residual. AUDRA flow was 3 throughout the procedure. The patient was previously on Plavix, heparin loaded in the lab. Sheath closed with TR band. TRANSINT:[id number] Voice Confirmation ID: [id number] DOCUMENT ID: [id number] HI SMITH MD at 1359 CC: [id number] DICTATION DATE: 09/06/17 1444 CELL EFFICIENCY SUPERVISOR: 09/06/17 1545 DEP CLI 09/06/17 [facility] [address] [facility] [place] [address]
[~2017-09-06 10:52] MED LIST changes: +CATAPRES0.1 MG PO; +FUROSEMIDE20 MG PO; +HCTZ25 MG PO; +KLOR-CON 88 MEQ PO; +PLAVIX75 MG PO
[2017-09-06 11:40] VITALS: BP 215/73; Ht 165.1 cm; Wt 80.0 kg
[2017-09-06 11:55] LABS: BASOPHILS 0.2 % (0-2); HEMATOCRIT 35.6 % (36.0-48.0); HEMOGLOBIN 12.5 g/dL (12-16); LYMPHOCYTES 26.7 % (15-50); MCH 32.4 pg (26.0-34.0); MCHC 35.1 g/dL (31.0-37.0); MCV 92.2 fL (80.0-100.0); MEAN PLATELET VOLUME 11.1 fL (7.4-10.4); MONOCYTES 10.4 % (2-11); NEUTROPHILS 61.7 % (40-80); PLATELET COUNT 138 10x3/uL (130-400); RBC 3.86 10x6/uL (4.00-5.40); RDW 12.6 % (11.5-14.5)
[2017-09-06 12:04] LABS: ANION GAP 8.9 mmol/L (8-16); CALCIUM 9.4 mg/dL (8.5-10.1); CARBON DIOXIDE 29.7 mmol/L (21.0-32.0); CREATININE - SERUM 0.9 mg/dL (0.6-1.3); POTASSIUM - SERUM 3.6 mmol/L (3.5-5.1)
== END 2017-09-06 18:50 | disposition home or self-care (01) ==
LOC: D.CATH 10:52
PROVIDERS: Internal Medicine Interventional Cardiology
DX: I25.119 Atherosclerotic heart disease of native coronary artery with unspecified angina pectoris (principal); Z01.812 Encounter for preprocedural laboratory examination

== ENCOUNTER → 2018-01-04 13:00 | Outpatient (CLI) | payer MEDICARE ==
[2017-09-06 11:40] VITALS: BMI 29.3
--- NOTE | ~2018-01-04 | HEMODYNAMI ---
PATIENT:QUITA TERRY MEDICAL RECORD: [id number] : 38 LOCATION:[facility] ADMISSION DATE: 01/04/18 Generatedon:01/04/201814:05 Patient name: QUITA TERRY Patient #: [id number] SSN: [id number] : 1940 Date of study: 01/04/2018 Page: Of Hemodynamic Procedure Report Patient Data Patient Demographics Procedure consent was obtained First Name: QUITA Gender: Female Last Name: MARA : 1940 Middle Initial: C Age: 77 year(s) Patient #: [id number] Race: SSN: [id number] Additional ID: [id number] Contact details Address: [address] [place] [address] State: [place] City: [place] Zip code: [address] Past Medical History Allergies Allergen Reaction Date Comments Reported Aspirin 09/06/2017 Aspirin 01/04/2018 Admission Admission Data Admission Date: 01/04/2018 Admission Time: 13:00 Procedure Procedure Types Cath Procedure Peripheral Cath Diagnostic Procedure Miscellaneous Procedure Description Procedure Date Procedure Date: 01/04/2018 Procedure Start Time: 13:44 Procedure Staff Name Function Maximiliano Foley RT Monitor Yonatan Escamilla MD Performing Physician Radha Mullins RN Nurse Procedure Data Cath Procedure Fluoroscopy Diagnostic fluoroscopy Total fluoroscopy Time: 1.1 time: 1.1 min min Diagnostic fluoroscopy Total fluoroscopy dose: 11 dose: 11 mGy mGy Hemodynamics Rest Pre Cath Intra NCS Post Cath Procedure Log Time Note 13:29:04 Radha Mullins RN sent for patient. Start room use. 13:29:37 Time tracking: Regular hours (M-F 7:00 - 5:00) 13:29:46 Patient received from Other to IR Alert and oriented. Tansferred to table in Prone position. 13:29:49 Signed procedure consent form obtained from patient. 13:30:03 - 13:30:04 Pre-procedure instructions explained to patient. 13:30:05 Pre-op teaching completed and patient verbalized understanding. 13:30:13 Patient allergic to Aspirin 13:30:36 PT STATES BEEN OFF ASPIRIN FOR 1 WEEK PRIOR TO PROCEDURE 13:30:49 LEFT Lumbar SACRAL AREA area was prepped with betadine and draped in sterile fashion 13:44:05 --------ALL STOP TIME OUT------ 13:44:06 Final Timeout: patient, procedure, and site verified with staff and physician. All members of the team are in agreement. 13:44:09 Lumbar site verified by team. 13:44:14 Sedation plan: Local Anesthetic Medication:Lidocaine 13:44:39 Full Disclosure recording started 13:44:39 Procedure started. 13:44:44 Local anesthetic to Lumbar SACRAL area with Lidocaine 1% by Yonatan Escamilla MD.INITIAL ACCESS ONLY 13:57:27 SAFE-T PLUS MYELOGRAM TRAY opened to sterile field. 13:57:34 Procedure ended.(Physican Out) 13:57:51 Fluoroscopy time 01.10 minutes. 13:57:57 Fluoroscopy dose: 11 mGy 13:57:57 Flurop Dose total: 11 13:57:58 Sharps counted by scrub and verified by R.N. 13:58:52 LUMBAR SACRAL SITE STAPLE BANDAIDE APPLIED PT GIVEN VERBAL INSTRUCTIONS AND WILL REMAIN IN WAITING ROOM FOR 30 MINS IF PT IS STILL OK AT THAT TIME SHE CAN GO HOME 13:59:18 Full Disclosure recording stopped Device Usage Item Name Manufacture Quantity Catalog Hospital Part Current Minimal Lot# / Number Charge Number Stock Stock Serial# Code SAFE-T CareFusion 1 [id number] PLUS MYELOGRAM TRAY Signature Audit [place] Stage Time Signature Unsigned Intra-Procedure 01/04/2018 Maximiliano Foley RT 1:59:13 PM Leydiield RT (R) (CV) 01/04/2018 (R) (CV) 2:04:09 PM Intra-Procedure 01/04/2018 Maximiliano 2:05:05 PM Leydiield RT (R) (CV) Signatures Monitor : Maximiliano Signature : Og RT Date : Time : [facility] [address] [facility] [place] [address]
== END | disposition home or self-care (01) ==
LOC: D.SP 13:00
DX: M53.3 Sacrococcygeal disorders, not elsewhere classified (principal); Z01.812 Encounter for preprocedural laboratory examination

== ENCOUNTER → 2018-09-06 14:49 | Outpatient (CLI) | payer MEDICARE ==
[2017-09-06 11:40] VITALS: BMI 29.3
== END | disposition home or self-care (01) ==
LOC: D.LABREF 14:49
PROVIDERS: ATTEND Orthopaedic Surgery
DX: M17.11 Unilateral primary osteoarthritis, right knee (principal); Z11.8 Encounter for screening for other infectious and parasitic diseases

== ENCOUNTER 2018-09-14 15:14 | Inpatient (IN) | payer MEDICARE ==
[2018-09-19] MEDS ORDERED: EDARBYCLOR 40-1 EACH PO (10:40)
[2018-09-19] MEDS ORDERED: HYDROCO/APAP TAB 10- PO (10:40)
[2018-09-19 11:33] LABS: BASOPHILS 0.6 % (0-2); EOSINOPHILS 1.7 % (0-7); HEMATOCRIT 36.9 % (36.0-48.0); HEMOGLOBIN 13.2 g/dL (12-16); LYMPHOCYTES 27.7 % (15-50); MCH 32.4 pg (26.0-34.0); MCHC 35.8 g/dL (31.0-37.0); MCV 90.4 fL (80.0-100.0); MONOCYTES 10.5 % (2-11); NEUTROPHILS 59.5 % (40-80); RBC 4.08 10x6/uL (4.00-5.40); RDW 12.3 % (11.5-14.5); WBC 5.4 10x3/uL (4.8-10.8)
[2018-09-19 11:46] LABS: ANION GAP 9.9 mmol/L (8-16); CALCIUM 9.7 mg/dL (8.5-10.1); CARBON DIOXIDE 31.5 mmol/L (21.0-32.0); CREATININE - SERUM 0.8 mg/dL (0.6-1.3); POTASSIUM - SERUM 3.4 mmol/L (3.5-5.1)
[2018-09-19 11:48] LABS: APTT 24.5 SECONDS (22.8-39.4); INR 0.96 (0.85-1.17); PROTIME 12.3 SECONDS (11.6-15.0)
[2018-09-19 11:52] LABS: PLATELET COUNT 182 10x3/uL (130-400)
[2018-09-19 12:57] LABS: APPEARANCE SL CLDY (CLEAR); BACTERIA MANY /hpf (NONE SEEN); BILIRUBIN NEGATIVE (NEGATIVE); COLOR STRAW (YELLOW); EPITHELIAL CELLS 0-5 /hpf (0-5); GLUCOSE NEGATIVE (NEGATIVE); KETONE NEGATIVE (NEGATIVE); MUCUS <1+ /lpf (NONE SEEN); NITRITE NEGATIVE (NEGATIVE); PROTEIN NEGATIVE (NEGATIVE); RED CELLS - URINE RARE /hpf (0-5); SPECIFIC GRAVITY 1.015 (1.005-1.020); UROBILINOGEN NORMAL (NORMAL); WHITE CELLS - URINE 0-5 /hpf (0-5)
[2018-09-25 07:59] VITALS: BP 170/74; BMI 29.1
--- NOTE | 2018-09-25 11:18 | NUR ---
PLASMA BLADE SET AT 6/8 BOVIE PAD ON RIGHT FLANK [id number] EXP 02/12/2020
--- NOTE | 2018-09-25 12:59 | NUR ---
BANDAID TO LEFT KNEE FROM INJECTION
--- NOTE | 2018-09-25 13:47 | OP ---
PATIENT NAME: QUITA TERRY MEDICAL RECORD: [id number] :38 LOCATION:D.MS [id number] ADMISSION DATE:09/25/18 SURGEON: YONATAN RIVERA DO DATE OF OPERATION: 09/25/2018 PROCEDURE PERFORMED: Right total knee arthroplasty, left knee injection. PREOPERATIVE DIAGNOSES: Right knee osteoarthritis with valgus deformity, left knee osteoarthritis. POSTOPERATIVE DIAGNOSES: Right knee osteoarthritis with valgus deformity, left knee osteoarthritis. INDICATIONS: Ms. Terry wanted her left knee injection when she got her right knee replaced, this was performed. The right knee, she has been nursing it along with injections, bracing, all manner of nonoperative treatment and it has started affecting her daily living and having the pain. She was aware of the risks including infection, bleeding, damage to nerves and vessels, need for further surgery, fracture, continued pain, blood clots and even . She signed the consent. SURGEON: Yonatan Rivera DO DESCRIPTION OF PROCEDURE: The patient was taken to the operative suite, given a block by anesthesia in the preoperative area, given 80 mg of gentamicin and also 2 grams of Ancef preoperatively. I was assisted by José He, advanced nurse practitioner. He did the injection of the left knee and also did the closing and assisted with retracting. This case could not have been performed without his desk assistant. Once the patient was in the operative suite, the right lower extremity was prepped and draped in sterile fashion. Timeout was performed, everyone was in agreeance with the correct side, site, patient and procedure. The patient was given a gram of TXA before surgery and then while we were closing at the end. Once the right lower extremity was prepped and draped, an incision was marked out and covered with Ioban. A #10 scalpel was used to cut through the skin, down to the capsule and then a fresh 10-blade was used to the medial parapatellar approach to the capsule. Fat pad was partially removed. The patella was then milled down in anticipation for a 28 thin patella. Then, the knee was flexed up and the femur was exposed and a drill was used to enter the intramedullary canal. The cutting guide was then put in due to her valgus deformity set at 4 degrees of valgus and then a 12-mm was resected off the medial side and a small amount off the lateral side making it flat. The tibia was then exposed and 2-mm was taken off at the low spot on this. She had a very large defect on the lateral plateau of the tibia and this was cut off of that. This was then brought to extension and a lamina applications support lead was used to open up the knee. The menisci removed and any bleeding was coagulated at that time with the Aquamantys. The extension block had fit very well. Knee was flexed up. The femur was measured to be 62.5. A 4-in-1 cutting block was then used to cut the femur and then a trial was put on. The tibia was floated in with a 10-poly and rotation was marked. The patella was then drilled and so were the lug holes on the femur. The tibia was then prepared with a 71 cruciate and tibia. Cement was mixed. Cement was put on the tibia and in the tibia, and impacted into place, and excess cement was removed. The femur was then impacted on and the poly was put in between them, brought to extension and then the patella was cleaned off and then cement was put into the holes that were drilled previously and on the patella implant and this was squeezed and held in place while the OPERATIVE REPORT [id number] QUITA TERRY cement dried. Any excess cement was removed at that time. The knee was thoroughly irrigated as well. Once the cement had dried, trialed up to a 14, this fit very well and had a good tight fit, and partially I had to release the PCL and flexion the patella where the poly would pop out indicating a tight PCL. This was partially released. We then put in a 14 implant and deep dish and that was locked into place with locking mechanism. The knee ranged very well with stable in extension and flexion. We then reirrigated more, and a Surgicel powder as well as vancomycin and tobramycin powder placed in the knee. The capsule was then closed with #2 Ethibond in pqneas-ro-lyihs fashion and the skin was closed with 2-0 Vicryl in an inverted interrupted fashion and the ZipLine placed on the knee. Adaptic, 4 x 4s, ABD, Webril, Emil wrap placed on the knee. She was awakened and taken to recovery in stable condition. JOSEPH hose stocking up to the knee. Blood loss was approximately 200 mL. COMPLICATIONS: None. TRANSINT:[id number] Voice Confirmation ID: [id number] DOCUMENT ID: [id number] YONATAN RIVERA DO at 1347 CC: [id number] DICTATION DATE: 09/25/18 1205 TRACK INSPECTING SUPERVISOR: 09/25/18 1328 ADM IN [facility] [address] [place] [address]
[2018-09-25 15:27] VITALS: BP 142/61; BMI 29.1
[2018-09-25 16:43] VITALS: BP 131/59; BP 136/81
--- NOTE | 2018-09-25 17:42 | NUR ---
PATIENT SITTING UP IN BED EATING AT THIS TIME WITH IV INTACT. NO COMPLAINTS. BSCDS ON AND WORKING. IS TO BEDSIDE. EXPLAINED HOW TO USE TO PATIENT. VERBALIZED UNDERSTANDING. CALL LIGHT WITHIN REACH.
--- NOTE | 2018-09-25 18:08 | NUR ---
PATIENT VOIDING AND THEN CPM ON. NO COMPLAINTS OR SIGNS OF DISTRESS AT THIS TIME. IV INTACT. BSCDS ON AND WORKING. DRESSING TO RIGHT KNEE CLEAN AND DRY. CALL LIGHT WITHIN REACH.
--- NOTE | 2018-09-25 18:42 | NUR ---
PATIENT RECIEVED PAIN MED AT THIS TIME. EARRING FROM SULFA BOTTLE GIVEN BACK TO PATIENT AND PATIENT PLACED IT IN ANOTHER BOTTLE OF PILLS IN HER BAG. STATED SHE WOULD HAVE HER FAMILY TAKE THE REST OF HER MEDS HOME. NO COMPLAINTS OR SIGNS OF DISTRESS. IV INTACT. CPM ON. BSCDS ON AND WORKING. CALL LIGHT WITHIN REACH.
--- NOTE | 2018-09-25 20:00 | NUR ---
ASSESSMENT PER FLOWSHEET. IV PATENT LEFT FOREARM OF 1/2NS AT 50CC'S/HR. SITE CLEAR. ACEWRAP TO RT KNEE INCISION. RT LEG IN CPM AT THIS TIME. JOSEPH HOSE TO RT LEG SCD TO BOTH LEGS.BED ALARM BED ON SR UP X2 CALL LIGHT WITHIN REACH.
[2018-09-25 20:55] VITALS: BP 134/77
--- NOTE | 2018-09-25 21:15 | NUR ---
MEDS GIVEN PER MAR.
--- NOTE | 2018-09-25 21:30 | NUR ---
CPM OFF. PLACED ON BEDPAN VOIDS WELL.
--- NOTE | 2018-09-25 23:25 | NUR ---
RESTING QUIETLY DENIES NEEDS.
--- NOTE | 2018-09-25 23:26 | NUR ---
EYES CLOSED RESPIRATIONS WITH EASE AND UNLABORED.
[2018-09-26 01:22] VITALS: BP 117/47
--- NOTE | 2018-09-26 04:02 | NUR ---
PLACED ON BEDPAN VOIDS WELL.
[2018-09-26 05:55] VITALS: BP 124/50
[2018-09-26 06:53] LABS: BASOPHILS 0.3 % (0-2); EOSINOPHILS 0 % (0-7); HEMATOCRIT 29.1 % (36.0-48.0); HEMOGLOBIN 10.1 g/dL (12-16); IMMATURE GRANULOCYTES 0.2 % (0-5); LYMPHOCYTES 7.6 % (15-50); MCH 31.6 pg (26.0-34.0); MCHC 34.7 g/dL (31.0-37.0); MCV 90.9 fL (80.0-100.0); MEAN PLATELET VOLUME 11.8 fL (7.4-10.4); MONOCYTES 4.1 % (2-11); NEUTROPHILS 87.8 % (40-80); RDW 12.3 % (11.5-14.5); WBC 5.8 10x3/uL (4.8-10.8)
--- NOTE | 2018-09-26 07:00 | NUR ---
REPORT RECIEVED ASSUMED CARE. PATIENT IN BED WITH IV INTACT. NO COMPLAINTS OR SIGNS OF DISTRESS. CALL LIGHT WITHIN REACH.
[2018-09-26 07:01] LABS: ALBUMIN 2.6 g/dL (3.4-5.0); ANION GAP 12.5 mmol/L (8-16); BILIRUBIN - TOTAL 0.19 mg/dL (0.2-1.3); CALCIUM 8.3 mg/dL (8.5-10.1); CARBON DIOXIDE 23.8 mmol/L (21.0-32.0); CREATININE - SERUM 1.1 mg/dL (0.6-1.3); POTASSIUM - SERUM 4.3 mmol/L (3.5-5.1); PROTEIN - SERUM 5.4 g/dL (6.4-8.2)
[2018-09-26 07:04] LABS: PLATELET COUNT 125 10x3/uL (130-400)
[2018-09-26 09:45] VITALS: BP 141/54
--- NOTE | 2018-09-26 10:15 | NUR ---
PATIENT SITTING UP IN CHAIR WITH NO COMPLAINTS. IV INTACT. CALL LIGHT WITHIN REACH.
--- NOTE | 2018-09-26 13:17 | MORECARE ---
CASE MANAGEMENT DISCHARGE SUMMARY PATIENT: QUITA TERRY UNIT: [id number] ADM DATE: 09/25/18 AGE: 78 : 39 SEX: F ROOM/BED: D.8199 AUTHOR: TORITO DOLL PHYSICIAN: REFERRING PHYSICIAN: MARKO RIVERA DO DATE OF SERVICE: 09/26/18 Discharge Plan Patient Name: QUITA TERRY Facility: [facility]:[place] : 1940 Planned Disposition: Inpatient Rehab Anticipated Discharge Date: Discharge Date: Expected LOS: Initial Reviewer: [email or web address] Initial Review Date: 09/25/2018 Generated: 09/26/18 2:17 pm DCP- Discharge Planning Updated by [id number]: [facility] on 09/26/18 12:[address] Patient Name: QUITA TERRY Admission Status: Elective Accout number: [id number] Admission Date: 09-25-2018 : 1940 Admission Diagnosis: Attending: MARKO RIVERA Current LOS: 1 Anticipated DC Date: Planned Disposition: Inpatient Rehab Primary Insurance: [employer] ADV Discharge Planning Comments: CM met with patient to complete initial dc planning assessment. CM educated patient on the CM role and verbal consent given by patient to complete assessment. Patient lives at home by herself where she is independent with her care. At discharge patient plans to go to inpatient rehab at [facility] and feels this is a safe discharge. If she is not accepted to inpatient rehab her second choice is [place]. KIKI signed and placed in chart. CM discussed medical equipment. Patient stated that she has a walker and a BSC at home, that was her dad's but nothing has been delivered to her from a DME office that was set up by Dr Rivera. Patient denied known discharge needs at this time. CM will continue to follow and will assist as needed with dc plans/needs. Flask Fitter: [facility] DCPIA - Discharge Planning Initial Assessment Updated by [email or web address]: [facility] on 09/26/18 1:13 pm * Is the patient Alert and Oriented? Yes * How many steps to enter\exit or inside your home? * PCP LONGORIA * Pharmacy [facility] * Preadmission Environment Home Alone * ADLs Independent * Equipment Bedside Commode Rolling Walker * List name and contact numbers for known caregivers / representatives who currently or will assist patient after discharge: EDILSON HU [phone] * Verbal permission to speak to the caregivers and representatives has been obtained from the patient. N/A * Community resources currently utilized None * Additional services required to return to the preadmission environment? Yes * Can the patient safely return to the preadmission environment? No * Has this patient been hospitalized within the prior 30 days at any hospital? No Coverage Notice Reviewer: [email or web address] [facility] Notice Issued Date-Time: 09/26/2018 12:50 Notice Type: IM Discharge Notice Notice Delivered To: Patient Relationship to Patient: Assistant Community Director Name: Delivery Method: HAND - Hand Delivered Jacqueline Days: Prior Verbal Notification: Recipient Understood Notice: Yes Recipient Signature: Yes Med Rec Note Co-signed by Attending: Coverage Notice Comment: Reviewer: [email or web address] Heart Notice Issued Date-Time: 09/26/2018 12:50 Notice Type: Patient Choice Letter Notice Delivered To: Patient Relationship to Patient: Assistant Community Director Name: Delivery Method: HAND - Hand Delivered Jacqueline Days: Prior Verbal Notification: Recipient Understood Notice: Yes Recipient Signature: Yes Med Rec Note Co-signed by Attending: Coverage Notice Comment: Patient Name: QUITA TERRY Page [id number] at 1317 All edits/amendments must be made on the electronic document DICTATION DATE: 09/26/18 1316 LANDING WORKER: LUDY 09/26/18 1316 RPT#: [id number] LA DATE: STATUS: ADM IN [facility] [address] [place] [address] END OF REPORT
--- NOTE | 2018-09-26 14:00 | NUR ---
Rehab Note- Acute Inpatient Rehab prescreen order received. The patient has [facility] insurance and will require a PReAuth prior to an acute inpatient rehab stay. Will begin the PreAuth process. Will follow at this time and await a determination from [facility]. Thank you for this referral! Socorro Mullins RN CLinical Liaison, [facility] Rehab
--- NOTE | 2018-09-26 14:05 | NUR ---
PATIENT IN BED WITH NO COMPLAINTS OR SIGNS OF DISTRESS. IV INTACT. REPORT GIVEN TO YANCY BOSE.
[2018-09-26 14:12] VITALS: BP 124/52
--- NOTE | 2018-09-26 14:23 | NUR ---
REPORT RECD FROM LILIAN WOODY RN. CARE OF PT ASSUMED. PT DENIES PRESENCE OF PAIN AT THIS TIME. PT REPORTS NUMBNESS AND TINGLING IN RIGHT LOWER EXTREMITY. DRESSING TO RIGHT KNEE IS C/D/I. BED IS IN THE LOWEST POSITION. CALL LIGHT AND BEDSIDE TABLE ARE WITHIN REACH. SIDE RAILS X 2. PT DENIES FURTHER NEEDS. WILL CONT TO MONITOR.
--- NOTE | 2018-09-26 16:15 | NUR ---
Rehab Note- PreAuth has been started & clinicals have been faxed to [facility] that does authorizations for [employer] for post acute care. Will continue to follow at this time & await determination. Thank you for this referral! Socorro Mullins RN Clinical Liaison, [facility] Rehab
[2018-09-26 16:23] LABS: APPEARANCE CLEAR (CLEAR); BILIRUBIN NEGATIVE (NEGATIVE); COLOR YELLOW (YELLOW); GLUCOSE NEGATIVE (NEGATIVE); KETONE NEGATIVE (NEGATIVE); NITRITE NEGATIVE (NEGATIVE); PROTEIN NEGATIVE (NEGATIVE); SPECIFIC GRAVITY 1.015 (1.005-1.020); UROBILINOGEN NORMAL (NORMAL)
[2018-09-26 17:22] VITALS: BP 135/58
--- NOTE | 2018-09-26 17:38 | NUR ---
OT NOTE: PT COMPLETED SIMPLE HYGIENE TASK WITH SET UP. PT COMPLETED BED MOB TASK WITH CGA/MIN A. THANK YOU,BERKLEY RIZO
--- NOTE | 2018-09-26 17:53 | NUR ---
PT PLACED ON CPM MACHINE. PT REQUESTS PAIN MEDICATION. WILL ADDRESS. SEE EMAR.
[2018-09-26 20:51] VITALS: BP 155/57
[2018-09-27] VITALS (7 sets, daily range): BP systolic 122–166; BP diastolic 42–77
--- NOTE | 2018-09-27 01:05 | NUR ---
PLACED ON BEDPAN VOIDS FREELY C/O PAIN INCISIONAL AREA RATES PAIN LEVEL#4. NORCO 5MG TAB ONE PO GIVEN FOR PAIN CONTROL.
--- NOTE | 2018-09-27 04:13 | NUR ---
EYES CLOSED RESPIRATIONS WITH EASE AND UNLABORED.
[2018-09-27 05:45] LABS: BASOPHILS 0.3 % (0-2); EOSINOPHILS 0.2 % (0-7); HEMATOCRIT 28.3 % (36.0-48.0); IMMATURE GRANULOCYTES 0.3 % (0-5); LYMPHOCYTES 12.8 % (15-50); MCH 31.9 pg (26.0-34.0); MCHC 35.3 g/dL (31.0-37.0); MCV 90.4 fL (80.0-100.0); MEAN PLATELET VOLUME 11.5 fL (7.4-10.4); MONOCYTES 8.9 % (2-11); NEUTROPHILS 77.5 % (40-80); PLATELET COUNT 105 10x3/uL (130-400); RBC 3.13 10x6/uL (4.00-5.40); RDW 12.6 % (11.5-14.5); WBC 6.7 10x3/uL (4.8-10.8)
[2018-09-27 06:38] LABS: ALBUMIN 2.6 g/dL (3.4-5.0); ANION GAP 10.9 mmol/L (8-16); BILIRUBIN - TOTAL 0.25 mg/dL (0.2-1.3); CALCIUM 8.6 mg/dL (8.5-10.1); CARBON DIOXIDE 26.2 mmol/L (21.0-32.0); CREATININE - SERUM 1.5 mg/dL (0.6-1.3); POTASSIUM - SERUM 4.1 mmol/L (3.5-5.1); PROTEIN - SERUM 5.3 g/dL (6.4-8.2)
--- NOTE | 2018-09-27 07:10 | NUR ---
PT RESTING IN BED WITH EYES OPEN. RESPIRATIONS ARE EVEN AND UNLABORED. CPM IS ON. PT DENIES NEEDS FOR PAIN MANAGEMENT AT THIS TIME. DRESSING TO RIGHT KNEE IS C/D/I. PT DENIES PRESENCE OF N/V. BED IS IN THE LOWEST POSITION. CALL LIGHT AND BEDSIDE TABLE ARE WITHIN REACH. SIDE RAILS X 2. WILL CONT TO MONITOR.
--- NOTE | 2018-09-27 11:34 | NUR ---
Rehab Note- Called [facility] for f/u on pending authorization- spoke with Anahi stated it is in clinical review and that we should get a determination soon. Will continue to await determination. Thank you for this referral! Socorro Mullins RN Clinical Liaison, [facility] Rehab
--- NOTE | 2018-09-27 14:36 | NUR ---
PT WITH RED SPOTS ON LOWER EXTREMITIES AND BACK. PT REPORTS ITCHING AND AN "ITCHY" THROAT. NOTIFIED DR SANTIAGO AND EARLENE PIZARRO APN. WILL ADDRESS. SEE EMAR.
--- NOTE | 2018-09-27 16:49 | NUR ---
DRESSING CHANGED PER ORDER. PT TOLERATED WELL.
--- NOTE | 2018-09-27 18:24 | NUR ---
OT NOTE: PT COMPLETED CHAIR SIT UPS WITH SBA. PT COMPLETED SITTING BALANCE WITH SBA. PT COMPLETED BUE AROM EXS. THANK YOU, BERKLEY RIZO
--- NOTE | 2018-09-27 21:05 | NUR ---
PT C/O ITCHING AND RASH. GAVE BENEDRYL 25 MG IV PUSH. ASSISTED PT UP TO BATHROOM WITH WALKER. COMPLETE ASSESSMENT PER FLOW-SHEET. NO OTHER NEEDS. WILL REASSESS AND CONTINUE TO MONITOR.
[2018-09-28] VITALS: BP 162/66
[2018-09-28 04:00] VITALS: BP 181/71
[2018-09-28 05:07] LABS: BASOPHILS 0.5 % (0-2); EOSINOPHILS 3.2 % (0-7); HEMATOCRIT 30.5 % (36.0-48.0); HEMOGLOBIN 10.7 g/dL (12-16); IMMATURE GRANULOCYTES 0.3 % (0-5); LYMPHOCYTES 13.1 % (15-50); MCH 31.9 pg (26.0-34.0); MCHC 35.1 g/dL (31.0-37.0); MEAN PLATELET VOLUME 11.2 fL (7.4-10.4); MONOCYTES 7.1 % (2-11); NEUTROPHILS 75.8 % (40-80); PLATELET COUNT 112 10x3/uL (130-400); RBC 3.35 10x6/uL (4.00-5.40); RDW 12.7 % (11.5-14.5); WBC 6.2 10x3/uL (4.8-10.8)
[2018-09-28 05:23] LABS: ALBUMIN 2.6 g/dL (3.4-5.0); ANION GAP 11.6 mmol/L (8-16); BILIRUBIN - TOTAL 0.3 mg/dL (0.2-1.3); CALCIUM 8.8 mg/dL (8.5-10.1); CARBON DIOXIDE 27.6 mmol/L (21.0-32.0); CREATININE - SERUM 1.8 mg/dL (0.6-1.3); POTASSIUM - SERUM 4.2 mmol/L (3.5-5.1); PROTEIN - SERUM 5.5 g/dL (6.4-8.2)
--- NOTE | 2018-09-28 08:00 | NUR ---
ASSESSMENT PER FLOW SHEET. PT IS WITHOUT DISTRESS.CALL LIGHT IN REACH
[2018-09-28 08:59] VITALS: BP 174/61
--- NOTE | 2018-09-28 09:52 | NUR ---
Rehab Note- Spoke w/ Jane w/ [facility] w/ [employer]- stated the Auth is still pending in clinical review & that she was reaching out to the purification supervisor d/t this AUth has been pending since 09/26. Will continue to await determination. Thank you for this referral! Socorro Mullins RN Clinical Liaison, [facility] Rehab
[2018-09-28 13:48] VITALS: BP 157/77
--- NOTE | 2018-09-28 14:00 | NUR ---
BACK FROM IR VIA BED. PT IS WITHOUT DISTRESS. RIGHT NEPHROSTOMY TUBE HAS VERY DARK TEA COLORED URING IN BAG.MONITOR FOR NEEDS
--- NOTE | 2018-09-28 14:23 | NUR ---
Rehab Note- Called [facility], states case is still pending and the clinicals are still pending with the reviewer- stated he "did get the reviewer's attention" in chat because she responded back "hello" and he stated that I should hear something back within the next couple of hours, told him that I have been hearing that now for 2 days. He appologized, told him I understood that it is not his fault but that it is a Monday afternoon, this has been going on for 2 days now and if she is not authorized for our acute rehab then other arrangements need to be made & that is difficult on a Monday afternnon. Spoke w/ SAGRARIO De Santiago that has reached out to Jody Wang that is with [facility]. Willl continue to await determination. Thank you for this referral! Socorro Mullins RN Clinical Liaison, [facility] Rehab
--- NOTE | 2018-09-28 16:53 | NUR ---
Rehab Note- REceived a call from Kirti with [facility] @ 7105, stating she still was awaiting clinicals of an OT Eval & a Preadmission screen to send to her medical esthetician, informed her would print off & send immediately. Stated that she would be getting off @ 1600 EST, told her I was faxing now. Asked if there was a better phone # to communicate with her d/t I have been attempting now for 2 days- she gave me her contact # as [phone] Ext. [phone]. Faxed all requested info. Will continue to await determination. Thank you for this referral! Socorro Mullins RN CLinical Liaison, [facility] Rehab
[2018-09-28 17:49] VITALS: BP 149/66
[2018-09-28 20:00] VITALS: BP 166/69
[2018-09-29] VITALS: BP 172/56
[2018-09-29 04:00] VITALS: BP 175/65
--- NOTE | 2018-09-29 05:00 | NUR ---
PT VOIDED ON BEDPAN. PLACED PT IN CPM. NO OTHER NEEDS. WILL REASSESS AND CONTINUE TO MONITOR.
[2018-09-29 06:42] LABS: BASOPHILS 0.8 % (0-2); EOSINOPHILS 0.9 % (0-7); HEMATOCRIT 29.6 % (36.0-48.0); HEMOGLOBIN 10.3 g/dL (12-16); IMMATURE GRANULOCYTES 0.3 % (0-5); LYMPHOCYTES 23.1 % (15-50); MCH 31.8 pg (26.0-34.0); MCHC 34.8 g/dL (31.0-37.0); MCV 91.4 fL (80.0-100.0); MEAN PLATELET VOLUME 11.3 fL (7.4-10.4); MONOCYTES 8.7 % (2-11); NEUTROPHILS 66.2 % (40-80); PLATELET COUNT 130 10x3/uL (130-400); RBC 3.24 10x6/uL (4.00-5.40); RDW 12.6 % (11.5-14.5); WBC 6.4 10x3/uL (4.8-10.8)
[2018-09-29 06:50] LABS: ALBUMIN 2.6 g/dL (3.4-5.0); ANION GAP 11.9 mmol/L (8-16); BILIRUBIN - TOTAL 0.35 mg/dL (0.2-1.3); CALCIUM 9.1 mg/dL (8.5-10.1); CARBON DIOXIDE 27.4 mmol/L (21.0-32.0); POTASSIUM - SERUM 4.3 mmol/L (3.5-5.1); PROTEIN - SERUM 5.7 g/dL (6.4-8.2)
[2018-09-29 06:51] LABS: CREATININE - SERUM 1.3 mg/dL (0.6-1.3)
[2018-09-29 09:43] VITALS: BP 196/81
[2018-09-29 14:17] VITALS: BP 178/62
[2018-09-29 17:44] VITALS: BP 194/73
--- NOTE | 2018-09-29 18:50 | NUR ---
PATIENT IN BED WITH IV INTACT. NO COMPLAINTS OR SIGNS OF DISTRESS. CALL LIGHT WITHIN REACH.
[2018-09-29 20:00] VITALS: BP 178/50
[2018-09-30 04:00] VITALS: BP 144/78
--- NOTE | 2018-09-30 05:30 | NUR ---
PLACED PT IN CPM. PT VOIDED FREQUENTLY ALL SHIFT. NO OTHER NEEDS. WILL CONTINUE TO MONITOR.
[2018-09-30 07:36] LABS: ALBUMIN 2.8 g/dL (3.4-5.0); ANION GAP 11.6 mmol/L (8-16); BILIRUBIN - TOTAL 0.4 mg/dL (0.2-1.3); CALCIUM 9.2 mg/dL (8.5-10.1); CARBON DIOXIDE 28.4 mmol/L (21.0-32.0)
[2018-09-30 08:19] LABS: BASOPHILS 0.5 % (0-2); HEMATOCRIT 29.7 % (36.0-48.0); HEMOGLOBIN 10.3 g/dL (12-16); IMMATURE GRANULOCYTES 0.5 % (0-5); LYMPHOCYTES 27.8 % (15-50); MCH 31.6 pg (26.0-34.0); MCHC 34.7 g/dL (31.0-37.0); MCV 91.1 fL (80.0-100.0); MEAN PLATELET VOLUME 11.6 fL (7.4-10.4); NEUTROPHILS 62.2 % (40-80); RBC 3.26 10x6/uL (4.00-5.40); RDW 12.6 % (11.5-14.5); WBC 5.9 10x3/uL (4.8-10.8)
[2018-09-30 08:21] LABS: PLATELET COUNT 162 10x3/uL (130-400)
[2018-09-30 10:13] VITALS: BP 173/73
[2018-09-30 12:26] LABS: CKMB 0.4 U/L (0.0-3.6); CREATINE KINASE 22 UL (21-215); TROPONIN-I < 0.017 ng/mL (0.000-0.060)
[2018-09-30 13:54] VITALS: BP 187/70
[2018-09-30 17:49] VITALS: BP 187/66
--- NOTE | 2018-09-30 18:02 | NUR ---
I have reviewed this patient and I concur with the Shift Assessment completed by the Licensed Practical Nurse today this shift.
--- NOTE | 2018-09-30 18:22 | NUR ---
ON CMP AT THIS TIME CAN COME OFF AT 2120
[2018-09-30 18:23] LABS: CKMB 0.9 U/L (0.0-3.6); CREATINE KINASE 31 UL (21-215)
[2018-09-30 18:24] LABS: TROPONIN-I < 0.017 ng/mL (0.000-0.060)
--- NOTE | 2018-09-30 19:35 | NUR ---
LYING IN BED. ASKED STAFF TO REMOVE CPM AT THIS TIME. ALERT AND ORIENTED X4. RESP EVEN AND NONLABORED. DRSG NOTED TO RT KNEE IS C/D/I. PEDAL PULSES WNL. REFUSES TO WEAR SCD. RATES PAIN IN LT KNEE 5 BUT REFUSES PAIN MED AT THIS TIME. SALINE LOCK NOTED TO LT FOREARM. SR ELEVATED X2. CL IN REACH.
--- NOTE | 2018-09-30 21:05 | NUR ---
C/O PAIN IN RT KNEE. MEDICATED WITH DILAUDID PO AT THIS TIME. SR ELEVATED X2. CL IN REACH.
[2018-09-30 23:38] LABS: CKMB 0.9 U/L (0.0-3.6); CREATINE KINASE 22 UL (21-215)
[2018-09-30 23:40] LABS: TROPONIN-I < 0.017 ng/mL (0.000-0.060)
[2018-10-01 01:19] VITALS: BP 170/71
--- NOTE | 2018-10-01 02:12 | NUR ---
RESTING WITH EYES CLOSED. CHEST RISING AND FALLING EVENLY. NO DISTRESS. CL IN REACH.
--- NOTE | 2018-10-01 06:40 | NUR ---
REFUSED TO USE CPM THIS AM. STATES SHE IS MOVING AROUND JUST FINE.
[2018-10-01 06:53] LABS: BASOPHILS 0.7 % (0-2); EOSINOPHILS 3.6 % (0-7); HEMATOCRIT 30.3 % (36.0-48.0); HEMOGLOBIN 10.3 g/dL (12-16); LYMPHOCYTES 38.2 % (15-50); MCH 31.3 pg (26.0-34.0); MCV 92.1 fL (80.0-100.0); MONOCYTES 10.9 % (2-11); NEUTROPHILS 45.6 % (40-80); PLATELET COUNT 178 10x3/uL (130-400); RBC 3.29 10x6/uL (4.00-5.40); RDW 12.6 % (11.5-14.5); WBC 5.8 10x3/uL (4.8-10.8)
[2018-10-01 07:31] LABS: ALBUMIN 2.6 g/dL (3.4-5.0); ANION GAP 11.8 mmol/L (8-16); BILIRUBIN - TOTAL 0.47 mg/dL (0.2-1.3); CALCIUM 8.9 mg/dL (8.5-10.1); CARBON DIOXIDE 29.2 mmol/L (21.0-32.0); PROTEIN - SERUM 5.8 g/dL (6.4-8.2)
--- NOTE | 2018-10-01 07:49 | NUR ---
PT BP IS 205/81 TIS MORNING PT HAS SCHEDULED CATAPRES AT 0900. CONTINUE WITH PLAN OF CARE
[2018-10-01] MEDS ORDERED: ELIQUIS2.5 MG PO (08:42)
[2018-10-01] MEDS ORDERED: DILAUDID2 MG PO (08:43)
[2018-10-01] MEDS ORDERED: KEFLEX500 MG PO (08:43)
[2018-10-01 08:55] VITALS: BP 205/81
--- NOTE | 2018-10-01 09:31 | NUR ---
PT LYING IN BED, DR RIVERA CHANGED PT DRESSING STATING PT NEEDS JOSEPH HOSE AND ROD WRAP ON RT LEG, NO OTHER NEEDS VOICED BY PT CONTINUE WITH PLAN OF CARE
--- NOTE | 2018-10-01 11:31 | NUR ---
Rehab Note- Spoke w/ Kirti, Clinical Reviewer on Monday evening @1640, refaxed requested info at that time, had a voicemaill left @ 1900 on Monday evening from Kirti. Returned call to Kirti this AM and voicemail left at that time. Called @ 1130 to check status of pending authorization- spoke germán/ Joi- stted that the authorization is still pending with the biomedical engineering technologist & that the biomedical engineering technologist has 24-48hrs to make a determination. WIll continue to await determination. Thank you for this referral! Socorro Mullins RN CLinical Liaison, [facility] Rehab
--- NOTE | 2018-10-01 12:00 | NUR ---
OT NOTE: PT DOING WELL; STATES PAIN IS TOLERABLE. ABLE TO AMB IN ROOM WITH WALKER AND CGA/SBA. PT CONT TO REQUIRE ASSIST WITH ADLS AND WOULD BENEFIT FROM IP REHAB IN ORDER TO RETURN TO PRIOR LEVEL OF INDEPENDENCE. KERA JOLLEY, OTR/L
[2018-10-01 12:34] VITALS: BP 132/69
--- NOTE | 2018-10-01 15:04 | NUR ---
NUTRITION F/U PT TOLERATING REG DIET. 25 TO 50% INTAKE RECENT MEALS. NOTE POSSIBLE DC TO REHAB. WILL CONTINUE TO PROVIDE DIET, MONITOR INTAKE. RD FOLLOWING
--- NOTE | 2018-10-01 15:44 | NUR ---
APPLIED SCD ONTO PT RT LEG, PT STATED PAIN IS AT A 4 IN KNEE, ADMINISTERED PRN PAIN MEDICATION, NO OTHER NEEDS VOICED CONTINUE WITH PLAN OF CARE
--- NOTE | 2018-10-01 15:50 | NUR ---
Rehab Note- Spoke w/ Carol with [facility] to check on pending authorization. Ref #[id number]. She is making documentation of extended time on getting authorization that has been pending since 09/26, stated this is not of the norm that usually have a determination within 24hrs, stated she was putting in note to esculate the process of determination & to have a call back to my phone # of [phone]. Carol was very appologetic to the lengthy time of determination. Will continue to await determination. Thank you for this referral! Socorro Mullins RN CLinical Liaison, [facility] Rehab
--- NOTE | 2018-10-01 17:08 | NUR ---
I AGREE WITH THE WAFER BATTER MIXER ASSESSMENT.
[2018-10-01 17:33] VITALS: BP 178/72
[2018-10-01 20:00] VITALS: BP 184/74
--- NOTE | 2018-10-01 23:00 | NUR ---
RECEIVED CARE FROM PREVIOUS NURSE. NO DISTRESS NOTED. CALL LIGHT AT SIDE.
--- NOTE | 2018-10-02 02:58 | NUR ---
I have reviewed this patient and I concur with the Shift Assessment completed by the Licensed Practical Nurse today this shift.
[2018-10-02 05:40] LABS: BASOPHILS 0.6 % (0-2); HEMATOCRIT 32.2 % (36.0-48.0); IMMATURE GRANULOCYTES 1.1 % (0-5); LYMPHOCYTES 28.4 % (15-50); MCH 31.3 pg (26.0-34.0); MCHC 34.2 g/dL (31.0-37.0); MCV 91.7 fL (80.0-100.0); MEAN PLATELET VOLUME 10.5 fL (7.4-10.4); MONOCYTES 11.1 % (2-11); NEUTROPHILS 56.8 % (40-80); PLATELET COUNT 207 10x3/uL (130-400); RBC 3.51 10x6/uL (4.00-5.40); RDW 12.5 % (11.5-14.5); WBC 5.4 10x3/uL (4.8-10.8)
[2018-10-02 06:02] LABS: ALBUMIN 2.9 g/dL (3.4-5.0); ANION GAP 11.5 mmol/L (8-16); BILIRUBIN - TOTAL 0.52 mg/dL (0.2-1.3); CALCIUM 8.9 mg/dL (8.5-10.1); CARBON DIOXIDE 29.6 mmol/L (21.0-32.0); CREATININE - SERUM 1.1 mg/dL (0.6-1.3); POTASSIUM - SERUM 4.1 mmol/L (3.5-5.1); PROTEIN - SERUM 6.3 g/dL (6.4-8.2)
[2018-10-02 06:26] VITALS: BP 195/82
[2018-10-02 09:30] VITALS: BP 189/71
--- NOTE | 2018-10-02 09:38 | NUR ---
Rehab Note- Voicemail left from Hollie requesting our facility NPI #, Called [phone] asked for Ext.[phone], Hollie is on break, spoke with [place] orellana all requested information of NPI#, also included facility address, fax, & phone #, & also the physicians NPI#- stated that she would expedit this information so when Hollie got back from her break she would have the information. COntinue to await determination since now 09/26. Thank you for this referral! Socorro Mullins Rn Clinical Liaison, [facility] Rehab
--- NOTE | 2018-10-02 12:30 | NUR ---
0730 IN BED WITH NO DISTRESS NOTED C/O LITTLE PAIN WHEN AMBULATING 3/10 RIGHT KNEE DRESSING CDI AWAKE ALERT ORIENTED ASSESSMENT COMPLETE
--- NOTE | 2018-10-02 12:32 | MORECARE ---
CASE MANAGEMENT DISCHARGE SUMMARY PATIENT: QUITA TERRY UNIT: [id number] ADM DATE: 09/25/18 AGE: 78 : 39 SEX: F ROOM/BED: D.4748 AUTHOR: TORITO DOLL PHYSICIAN: REFERRING PHYSICIAN: MARKO RIVERA DO DATE OF SERVICE: 10/02/18 Discharge Plan Patient Name: QUITA TERRY Facility: [facility]:[place] : 1940 Planned Disposition: Inpatient Rehab Anticipated Discharge Date: Discharge Date: Expected LOS: Initial Reviewer: [email or web address] Initial Review Date: 09/25/2018 Generated: 10/02/18 1:32 pm DCP- Discharge Planning Updated by [id number]: [facility] on 09/26/18 12:[address] Patient Name: QUITA TERRY Admission Status: Elective Accout number: [id number] Admission Date: 09-25-2018 : 1940 Admission Diagnosis: Attending: MARKO RIVERA Current LOS: 1 Anticipated DC Date: Planned Disposition: Inpatient Rehab Primary Insurance: [employer] ADV Discharge Planning Comments: CM met with patient to complete initial dc planning assessment. CM educated patient on the CM role and verbal consent given by patient to complete assessment. Patient lives at home by herself where she is independent with her care. At discharge patient plans to go to inpatient rehab at [facility] and feels this is a safe discharge. If she is not accepted to inpatient rehab her second choice is [place]. KIKI signed and placed in chart. CM discussed medical equipment. Patient stated that she has a walker and a BSC at home, that was her dad's but nothing has been delivered to her from a DME office that was set up by Dr Rivera. Patient denied known discharge needs at this time. CM will continue to follow and will assist as needed with dc plans/needs. Facility Environmental Technician: [facility] DCPIA - Discharge Planning Initial Assessment Updated by [email or web address]: [facility] on 09/26/18 1:13 pm * Is the patient Alert and Oriented? Yes * How many steps to enter\exit or inside your home? * PCP LONGORIA * Pharmacy [facility] * Preadmission Environment Home Alone * ADLs Independent * Equipment Bedside Commode Rolling Walker * List name and contact numbers for known caregivers / representatives who currently or will assist patient after discharge: EDILSON HU [phone] * Verbal permission to speak to the caregivers and representatives has been obtained from the patient. N/A * Community resources currently utilized None * Additional services required to return to the preadmission environment? Yes * Can the patient safely return to the preadmission environment? No * Has this patient been hospitalized within the prior 30 days at any hospital? No External Providers External Provider: [facility] Next Contact Date: Service Request Date: Service Type: Resolution: Reviewer: Comments: Coverage Notice Reviewer: [email or web address] [facility] Notice Issued Date-Time: 09/26/2018 12:50 Notice Type: IM Discharge Notice Notice Delivered To: Patient Relationship to Patient: Podiatry Teacher Name: Delivery Method: HAND - Hand Delivered Jacqueline Days: Prior Verbal Notification: Recipient Understood Notice: Yes Recipient Signature: Yes Med Rec Note Co-signed by Attending: Coverage Notice Comment: Reviewer: [email or web address] Heart Notice Issued Date-Time: 09/26/2018 12:50 Notice Type: Patient Choice Letter Notice Delivered To: Patient Relationship to Patient: Podiatry Teacher Name: Delivery Method: HAND - Hand Delivered Jacqueline Days: Prior Verbal Notification: Recipient Understood Notice: Yes Recipient Signature: Yes Med Rec Note Co-signed by Attending: Coverage Notice Comment: Last DP export: 09/26/18 12:17 p Patient Name: QUITA TERRY Page [id number] at 1232 All edits/amendments must be made on the electronic document DICTATION DATE: 10/02/18 1232 ASP NET DEVELOPER: LUDY 10/02/18 1232 RPT#: [id number] DC DATE: STATUS: ADM IN [facility] [address] [place] [address] END OF REPORT
--- NOTE | 2018-10-02 12:41 | MORECARE ---
CASE MANAGEMENT DISCHARGE SUMMARY PATIENT: QUITA TERRY UNIT: [id number] ADM DATE: 09/25/18 AGE: 78 : 39 SEX: F ROOM/BED: D.2217 AUTHOR: TORITO DOLL PHYSICIAN: REFERRING PHYSICIAN: MARKO RIVERA DO DATE OF SERVICE: 10/02/18 Discharge Plan Patient Name: QUITA TERRY Facility: [facility]:[place] : 1940 Planned Disposition: Inpatient Rehab Anticipated Discharge Date: Discharge Date: Expected LOS: Initial Reviewer: [email or web address] Initial Review Date: 09/25/2018 Generated: 10/02/18 1:40 pm Comments DCP- Discharge Planning Updated by [email or web address]: [facility] on 10/02/18 11:[address] received a call from Xiomara at [facility] for a Denial for inpatient rehab, but they would give me an auth for skilled. I called [facility] and spoke with Tristian she stated to send referral over and they would look at it. I spoke with patient about the above. IMM served and signed. I will wait for Xiomara to call me back with an approval/auth for [facility]. CM to follow and assist with DC planning DCP- Discharge Planning Updated by [email or web address]: [facility] on 09/26/18 12:[address] Patient Name: QUITA TERRY Admission Status: Elective Accout number: [id number] Admission Date: 09-25-2018 : 1940 Admission Diagnosis: Attending: MARKO RIVERA Current LOS: 1 Anticipated DC Date: Planned Disposition: Inpatient Rehab Primary Insurance: [employer] ADV Discharge Planning Comments: CM met with patient to complete initial dc planning assessment. CM educated patient on the CM role and verbal consent given by patient to complete assessment. Patient lives at home by herself where she is independent with her care. At discharge patient plans to go to inpatient rehab at [facility] and feels this is a safe discharge. If she is not accepted to inpatient rehab her second choice is [place]. KIKI signed and placed in chart. CM discussed medical equipment. Patient stated that she has a walker and a BSC at home, that was her dad's but nothing has been delivered to her from a DME office that was set up by Dr Rivera. Patient denied known discharge needs at this time. CM will continue to follow and will assist as needed with dc plans/needs. Manager Transplant: [facility] DCPIA - Discharge Planning Initial Assessment Updated by [id number]: [facility] on 09/26/18 1:13 pm * Is the patient Alert and Oriented? Yes * How many steps to enter\exit or inside your home? * PCP LONG[facility]IA * Pharmacy [facility] * Preadmission Environment Home Alone * ADLs Independent * Equipment Bedside Commode Rolling Walker * List name and contact numbers for known caregivers / representatives who currently or will assist patient after discharge: EDILSON HU [phone] * Verbal permission to speak to the caregivers and representatives has been obtained from the patient. N/A * Community resources currently utilized None * Additional services required to return to the preadmission environment? Yes * Can the patient safely return to the preadmission environment? No * Has this patient been hospitalized within the prior 30 days at any hospital? No Coverage Notice Reviewer: [email or web address] [facility] Notice Issued Date-Time: 09/26/2018 12:50 Notice Type: IM Discharge Notice Notice Delivered To: Patient Relationship to Patient: Noc Technician Name: Delivery Method: HAND - Hand Delivered Jacqueline Days: Prior Verbal Notification: Recipient Understood Notice: Yes Recipient Signature: Yes Med Rec Note Co-signed by Attending: Coverage Notice Comment: Reviewer: [email or web address] [facility] Notice Issued Date-Time: 09/26/2018 12:50 Notice Type: Patient Choice Letter Notice Delivered To: Patient Relationship to Patient: Noc Technician Name: Delivery Method: HAND - Hand Delivered Jacqueline Days: Prior Verbal Notification: Recipient Understood Notice: Yes Recipient Signature: Yes Med Rec Note Co-signed by Attending: Coverage Notice Comment: Reviewer: [email or web address] [facility] Notice Issued Date-Time: 10/02/2018 12:20 Notice Type: IM Discharge Notice Notice Delivered To: Patient Relationship to Patient: Noc Technician Name: Delivery Method: HAND - Hand Delivered Jacqueline Days: Prior Verbal Notification: Recipient Understood Notice: Yes Recipient Signature: Yes Med Rec Note Co-signed by Attending: Coverage Notice Comment: Last DP export: 10/02/18 11:32 a Patient Name: QUITA TERRY Page [id number] at 1241 All edits/amendments must be made on the electronic document DICTATION DATE: 10/02/181239 WOOD BOX MAKER: LUDY 10/02/181239 RPT#: [id number] DC DATE: STATUS: ADM IN [facility] [address] [place] [address] END OF REPORT
[2018-10-02 12:49] VITALS: BP 182/76
--- NOTE | 2018-10-02 12:55 | NUR ---
Rehab Note- Spoke with Sandi Alvarez with [facility] and stated the case is still pending with the nurse. Stated she would send an email on it since it has been esculated several times. & will put in an email in all caps that the patient should've been discharged last week to the acute rehab unit. Stated that she is putting a a brief email our frustration with getting an authorization. Will continue to await determination at this time. Thank you for this referral! Socorro Mullins RN Clinical Liaison, [facility] Rehab
--- NOTE | 2018-10-02 14:21 | MORECARE ---
CASE MANAGEMENT DISCHARGE SUMMARY PATIENT: QUITA TERRY UNIT: [id number] ADM DATE: 09/25/18 AGE: 78 : 39 SEX: F ROOM/BED: D.2217 AUTHOR: TORITO DOLL PHYSICIAN: REFERRING PHYSICIAN: MARKO RIVERA DO DATE OF SERVICE: 10/02/18 Discharge Plan Patient Name: QUITA TERRY Facility: [facility]:[place] : 1940 Planned Disposition: Inpatient Rehab Anticipated Discharge Date: Discharge Date: Expected LOS: Initial Reviewer: [id number] Initial Review Date: 09/25/2018 Generated: 10/02/18 3:21 pm Comments DCP- Discharge Planning Updated by [id number]: [facility] on 10/02/18 1:[address] XIOMARA CALLED BACK WITH AN AUTH FOR [facility] AUTH # [id number] LEVEL 2 FOR 7 DAYS I CALLED [facility] TO LET THEM KNOW IN THE BUSINESS OFFICE. STILL AWAITING THEM TO ACCEPT HER DCP- Discharge Planning Updated by [email or web address]: [facility] on 10/02/18 11:[address] received a call from Xiomara at [facility] for a Denial for inpatient rehab, but they would give me an auth for skilled. I called [facility] and spoke with Tristian she stated to send referral over and they would look at it. I spoke with patient about the above. IMM served and signed. I will wait for Xiomara to call me back with an approval/auth for [facility]. CM to follow and assist with DC planning DCP- Discharge Planning Updated by [email or web address]: [facility] on 09/26/18 12:[address] Patient Name: QUITA TERRY Admission Status: Elective Accout number: [id number] Admission Date: 09-25-2018 : 1940 Admission Diagnosis: Attending: MARKO RIVERA Current LOS: 1 Anticipated DC Date: Planned Disposition: Inpatient Rehab Primary Insurance: [employer] ADV Discharge Planning Comments: CM met with patient to complete initial dc planning assessment. CM educated patient on the CM role and verbal consent given by patient to complete assessment. Patient lives at home by herself where she is independent with her care. At discharge patient plans to go to inpatient rehab at [facility] and feels this is a safe discharge. If she is not accepted to inpatient rehab her second choice is [place]. KIKI signed and placed in chart. CM discussed medical equipment. Patient stated that she has a walker and a BSC at home, that was her dad's but nothing has been delivered to her from a DME office that was set up by Dr Rivera. Patient denied known discharge needs at this time. CM will continue to follow and will assist as needed with dc plans/needs. Wire Annealer: [facility] DCPIA - Discharge Planning Initial Assessment Updated by [email or web address]: [facility] on 09/26/18 1:13 pm * Is the patient Alert and Oriented? Yes * How many steps to enter\exit or inside your home? * PCP [facility] * Pharmacy [facility] * Preadmission Environment Home Alone * ADLs Independent * Equipment Bedside Commode Rolling Walker * List name and contact numbers for known caregivers / representatives who currently or will assist patient after discharge: EDILSON HU [phone] * Verbal permission to speak to the caregivers and representatives has been obtained from the patient. N/A * Community resources currently utilized None * Additional services required to return to the preadmission environment? Yes * Can the patient safely return to the preadmission environment? No * Has this patient been hospitalized within the prior 30 days at any hospital? No Coverage Notice Reviewer: [id number] [facility] Notice Issued Date-Time: 09/26/2018 12:50 Notice Type: IM Discharge Notice Notice Delivered To: Patient Relationship to Patient: Wood Casket Maker Name: Delivery Method: HAND - Hand Delivered Jacqueline Days: Prior Verbal Notification: Recipient Understood Notice: Yes Recipient Signature: Yes Med Rec Note Co-signed by Attending: Coverage Notice Comment: Reviewer: [id number] Notice Issued Date-Time: 09/26/2018 12:50 Notice Type: Patient Choice Letter Notice Delivered To: Patient Relationship to Patient: Wood Casket Maker Name: Delivery Method: HAND - Hand Delivered Jacqueline Days: Prior Verbal Notification: Recipient Understood Notice: Yes Recipient Signature: Yes Med Rec Note Co-signed by Attending: Coverage Notice Comment: Reviewer: [id number] Notice Issued Date-Time: 10/02/2018 12:20 Notice Type: IM Discharge Notice Notice Delivered To: Patient Relationship to Patient: Wood Casket Maker Name: Delivery Method: HAND - Hand Delivered Jacqueline Days: Prior Verbal Notification: Recipient Understood Notice: Yes Recipient Signature: Yes Med Rec Note Co-signed by Attending: Coverage Notice Comment: Last DP export: 10/02/18 11:40 a Patient Name: QUITA TERRY Page [phone] at 1421 All edits/amendments must be made on the electronic document DICTATION DATE: 10/02/181419 STRESS ANALYST: LUDY 10/02/18 1420 RPT#: [id number] DC DATE: STATUS: ADM IN [facility] [address] [place] [address] END OF REPORT
[2018-10-02 17:44] VITALS: BP 136/71
--- NOTE | 2018-10-02 20:00 | NUR ---
ASSESSMENT PER FLOWSHEET. ROD WRAP TO RT KNEE C/D/I. UP AD SUSU TO BR VOIDS WELL. RETURNS TO BED SR UP X2 CALL LIGHT WITHIN REACH. SITTING ON SIDE OF BED AT THIS TIME.
--- NOTE | 2018-10-02 20:29 | NUR ---
C/O PAIN TO INCISIONAL AREA RATES PAIN #4-5. DILAUDID 2MG PO TAB ONE GIVEN FOR PAIN CONTROL.
[2018-10-02 20:40] VITALS: BP 185/77
--- NOTE | 2018-10-02 22:00 | NUR ---
RESTING QUIETLY RESPIRATIONS WITH EASE AND UNLABORED.
--- NOTE | 2018-10-03 | NUR ---
EYES CLOSED RESPIRATIONS WITH EASE AND UNLABORED.
[2018-10-03 00:51] VITALS: BP 192/80
--- NOTE | 2018-10-03 04:00 | NUR ---
EYES CLOSED RESPIRATIONS WITH EASE AND UNLABORED.
[2018-10-03 04:48] VITALS: BP 174/75
[2018-10-03 06:22] LABS: BASOPHILS 0.9 % (0-2); EOSINOPHILS 2.8 % (0-7); HEMATOCRIT 30.6 % (36.0-48.0); HEMOGLOBIN 10.6 g/dL (12-16); IMMATURE GRANULOCYTES 1.3 % (0-5); LYMPHOCYTES 28.2 % (15-50); MCH 31.8 pg (26.0-34.0); MCHC 34.6 g/dL (31.0-37.0); MCV 91.9 fL (80.0-100.0); MEAN PLATELET VOLUME 10.5 fL (7.4-10.4); MONOCYTES 13.6 % (2-11); NEUTROPHILS 53.2 % (40-80); PLATELET COUNT 194 10x3/uL (130-400); RBC 3.33 10x6/uL (4.00-5.40); RDW 12.6 % (11.5-14.5); WBC 4.6 10x3/uL (4.8-10.8)
[2018-10-03 07:21] LABS: ALBUMIN 2.8 g/dL (3.4-5.0); ANION GAP 11.4 mmol/L (8-16); BILIRUBIN - TOTAL 0.5 mg/dL (0.2-1.3); CALCIUM 8.8 mg/dL (8.5-10.1); CARBON DIOXIDE 28.7 mmol/L (21.0-32.0); POTASSIUM - SERUM 4.1 mmol/L (3.5-5.1)
--- NOTE | 2018-10-03 08:00 | NUR ---
ASSESSMENT PER FLOW SHEET. PT IS WITHOUT DISTRESS.DRESSING RIGHT KNEE CDI. MONITOR FOR NEEDS.
[2018-10-03 08:50] VITALS: BP 196/62
[2018-10-03] MEDS ORDERED: PRINIVIL20 MG PO (09:26)
--- NOTE | 2018-10-03 09:56 | MORECARE ---
CASE MANAGEMENT DISCHARGE SUMMARY PATIENT: QUITA TERRY UNIT: [id number] ADM DATE: 09/25/18 AGE: 78 : 39 SEX: F ROOM/BED: D.5754 AUTHOR: TORITO DOLL PHYSICIAN: REFERRING PHYSICIAN: MARKO RIVERA DO DATE OF SERVICE: 10/03/18 Discharge Plan Patient Name: QUITA TERRY Facility: [facility]:[place] : 1940 Planned Disposition: Inpatient Rehab Anticipated Discharge Date: Discharge Date: Expected LOS: Initial Reviewer: [email or web address] Initial Review Date: 09/25/2018 Generated: 10/03/18 10:56 am Comments DCP- Discharge Planning Updated by [email or web address]: [facility] on 10/03/18 8:[address] [facility] HAS ACCEPTED THE PATIENT AND WILL PICK THE PATIENT UP AT 1200 PATIENT'S FAMILY NOTIFIED CM TO FOLLOW AND ASSIST NEEDED DCP- Discharge Planning Updated by [email or web address]: [facility] on 10/02/18 1:[address] XIOMARA CALLED BACK WITH AN AUTH FOR [facility] AUTH # [id number] LEVEL 2 FOR 7 DAYS I CALLED [facility] TO LET THEM KNOW IN THE BUSINESS OFFICE. STILL AWAITING THEM TO ACCEPT HER DCP- Discharge Planning Updated by [email or web address]: [facility] on 10/02/18 11:[address] received a call from Xiomara at [facility] for a Denial for inpatient rehab, but they would give me an auth for skilled. I called [facility] and spoke with Tristian she stated to send referral over and they would look at it. I spoke with patient about the above. IMM served and signed. I will wait for Xiomara to call me back with an approval/auth for margieere. CM to follow and assist with DC planning DCP- Discharge Planning Updated by [email or web address]: [facility] on 09/26/18 12:[address] Patient Name: QUITA TERRY Admission Status: Elective Accout number: [id number] Admission Date: 09-25-2018 : 1940 Admission Diagnosis: Attending: MARKO RIVERA Current LOS: 1 Anticipated DC Date: Planned Disposition: Inpatient Rehab Primary Insurance: [employer]IC[employer] ADV Discharge Planning Comments: CM met with patient to complete initial dc planning assessment. CM educated patient on the CM role and verbal consent given by patient to complete assessment. Patient lives at home by herself where she is independent with her care. At discharge patient plans to go to inpatient rehab at [facility] and feels this is a safe discharge. If she is not accepted to inpatient rehab her second choice is [place]. KIKI signed and placed in chart. CM discussed medical equipment. Patient stated that she has a walker and a BSC at home, that was her dad's but nothing has been delivered to her from a DME office that was set up by Dr Rivera. Patient denied known discharge needs at this time. CM will continue to follow and will assist as needed with dc plans/needs. Laborer Steel Handling: [facility] DCPIA - Discharge Planning Initial Assessment Updated by [email or web address]: [facility] on 09/26/18 1:13 pm * Is the patient Alert and Oriented? Yes * How many steps to enter\exit or inside your home? * PCP [facility] * Pharmacy [facility] * Preadmission Environment Home Alone * ADLs Independent * Equipment Bedside Commode Rolling Walker * List name and contact numbers for known caregivers / representatives who currently or will assist patient after discharge: EDILSON HU [phone] * Verbal permission to speak to the caregivers and representatives has been obtained from the patient. N/A * Community resources currently utilized None * Additional services required to return to the preadmission environment? Yes * Can the patient safely return to the preadmission environment? No * Has this patient been hospitalized within the prior 30 days at any hospital? No Coverage Notice Reviewer: [id number] [facility] Notice Issued Date-Time: 09/26/2018 12:50 Notice Type: IM Discharge Notice Notice Delivered To: Patient Relationship to Patient: Drug Enforcement Administration Agent Name: Delivery Method: HAND - Hand Delivered Jacqueline Days: Prior Verbal Notification: Recipient Understood Notice: Yes Recipient Signature: Yes Med Rec Note Co-signed by Attending: Coverage Notice Comment: Reviewer: [email or web address] [facility] Notice Issued Date-Time: 09/26/2018 12:50 Notice Type: Patient Choice Letter Notice Delivered To: Patient Relationship to Patient: Drug Enforcement Administration Agent Name: Delivery Method: HAND - Hand Delivered Jacqueline Days: Prior Verbal Notification: Recipient Understood Notice: Yes Recipient Signature: Yes Med Rec Note Co-signed by Attending: Coverage Notice Comment: Reviewer: [id number] Notice Issued Date-Time: 10/02/2018 12:20 Notice Type: IM Discharge Notice Notice Delivered To: Patient Relationship to Patient: Drug Enforcement Administration Agent Name: Delivery Method: HAND - Hand Delivered Jacqueline Days: Prior Verbal Notification: Recipient Understood Notice: Yes Recipient Signature: Yes Med Rec Note Co-signed by Attending: Coverage Notice Comment: Reviewer: [id number] Notice Issued Date-Time: 10/02/2018 12:20 Notice Type: IM Discharge Notice Notice Delivered To: Patient Relationship to Patient: Drug Enforcement Administration Agent Name: Delivery Method: HAND - Hand Delivered Jacqueline Days: Prior Verbal Notification: Recipient Understood Notice: Yes Recipient Signature: Yes Med Rec Note Co-signed by Attending: Coverage Notice Comment: Last DP export: 10/02/18 1:21 p Patient Name: QUITA TERRY Page [phone] at 0956 All edits/amendments must be made on the electronic document DICTATION DATE: 10/03/18954 PRINT TRAFFIC MANAGER: LUDY 10/03/18954 RPT#: [id number] DC DATE: STATUS: ADM IN [facility] [address] [place] [address] END OF REPORT
--- NOTE | 2018-10-03 11:25 | NUR ---
DISCHARGE INSTRUCTIONS WITH PT,STATES UNDERSTANDING.
--- NOTE | 2018-10-03 11:26 | NUR ---
REPORT TO [facility],SPOKE WITH ANNA
--- NOTE | 2018-10-03 11:42 | NUR ---
CALL BACK TO ANNA AT [facility]..CPM
[2018-10-03 12:24] VITALS: BP 196/62
--- NOTE | 2018-10-03 12:30 | NUR ---
LEFT UNIT VIA WHEELCHAIR FOR TRANSPORT TO [facility]
--- NOTE | 2018-10-04 12:01 | MORECARE ---
CASE MANAGEMENT DISCHARGE SUMMARY PATIENT: QUITA TERRY UNIT: [id number] ADM DATE: 09/25/18 AGE: 78 : 39 SEX: F ROOM/BED: D.6677 AUTHOR: SHARMILA,DOC PHYSICIAN: REFERRING PHYSICIAN: MARKO RIVERA DO DATE OF SERVICE: 10/04/18 Discharge Plan Patient Name: QUITA TERRY Facility: [facility]:[place] : 1940 Planned Disposition: Inpatient Rehab Anticipated Discharge Date: Discharge Date: 10/03/2018 Expected LOS: 0 Initial Reviewer: [email or web address] Initial Review Date: 09/25/2018 Generated: 10/04/18 1:01 pm DCP- Discharge Planning Updated by [email or web address]: [facility] on 10/03/18 8:[address] [facility] HAS ACCEPTED THE PATIENT AND WILL PICK THE PATIENT UP AT 1200 PATIENT'S FAMILY NOTIFIED CM TO FOLLOW AND ASSIST NEEDED DCP- Discharge Planning Updated by [id number]: [facility] on 10/02/18 1:[address] XIOMARA CALLED BACK WITH AN AUTH FOR [facility] AUTH # [id number] LEVEL 2 FOR 7 DAYS I CALLED [facility] TO LET THEM KNOW IN THE BUSINESS OFFICE. STILL AWAITING THEM TO ACCEPT HER DCP- Discharge Planning Updated by [email or web address]: [facility] on 10/02/18 11:[address] received a call from Xiomara at [facility] for a Denial for inpatient rehab, but they would give me an auth for skilled. I called [facility] and spoke with Tristian she stated to send referral over and they would look at it. I spoke with patient about the above. IMM served and signed. I will wait for Xiomara to call me back with an [facility]. CM to follow and assist with DC planning DCP- Discharge Planning Updated by [email or web address]: [facility] on 09/26/18 12:[address] Patient Name: QUITA TERRY Admission Status: Elective Accout number: [id number] Admission Date: 09-25-2018 : 1940 Admission Diagnosis: Attending: MARKO RIVERA Current LOS: 1 Anticipated DC Date: Planned Disposition: Inpatient Rehab Primary Insurance: [employer]IC[employer] ADV Discharge Planning Comments: CM met with patient to complete initial dc planning assessment. CM educated patient on the CM role and verbal consent given by patient to complete assessment. Patient lives at home by herself where she is independent with her care. At discharge patient plans to go to inpatient rehab at [facility] and feels this is a safe discharge. If she is not accepted to inpatient rehab her second choice is [place]. KIKI signed and placed in chart. CM discussed medical equipment. Patient stated that she has a walker and a BSC at home, that was her dad's but nothing has been delivered to her from a DME office that was set up by Dr Rivera. Patient denied known discharge needs at this time. CM will continue to follow and will assist as needed with dc plans/needs. Flavor Extractor: [facility] DCPIA - Discharge Planning Initial Assessment Updated by [id number]: [facility] on 09/26/18 1:13 pm * Is the patient Alert and Oriented? Yes * How many steps to enter\exit or inside your home? * PCP [facility] * Pharmacy [facility] * Preadmission Environment Home Alone * ADLs Independent * Equipment Bedside Commode Rolling Walker * List name and contact numbers for known caregivers / representatives who currently or will assist patient after discharge: EDILSON HU [phone] * Verbal permission to speak to the caregivers and representatives has been obtained from the patient. N/A * Community resources currently utilized None * Additional services required to return to the preadmission environment? Yes * Can the patient safely return to the preadmission environment? No * Has this patient been hospitalized within the prior 30 days at any hospital? No Coverage Notice Reviewer: [id number] [facility] Notice Issued Date-Time: 09/26/2018 12:50 Notice Type: IM Discharge Notice Notice Delivered To: Patient Relationship to Patient: Absorption Plant Operator Name: Delivery Method: HAND - Hand Delivered Jacqueline Days: Prior Verbal Notification: Recipient Understood Notice: Yes Recipient Signature: Yes Med Rec Note Co-signed by Attending: Coverage Notice Comment: Reviewer: [email or web address] [facility] Notice Issued Date-Time: 09/26/2018 12:50 Notice Type: Patient Choice Letter Notice Delivered To: Patient Relationship to Patient: Absorption Plant Operator Name: Delivery Method: HAND - Hand Delivered Jacqueline Days: Prior Verbal Notification: Recipient Understood Notice: Yes Recipient Signature: Yes Med Rec Note Co-signed by Attending: Coverage Notice Comment: Reviewer: [email or web address] Notice Issued Date-Time: 10/02/2018 12:20 Notice Type: IM Discharge Notice Notice Delivered To: Patient Relationship to Patient: Absorption Plant Operator Name: Delivery Method: HAND - Hand Delivered Jacqueline Days: Prior Verbal Notification: Recipient Understood Notice: Yes Recipient Signature: Yes Med Rec Note Co-signed by Attending: Coverage Notice Comment: Reviewer: IRAJ [facility] Notice Issued Date-Time: 10/02/2018 12:20 Notice Type: IM Discharge Notice Notice Delivered To: Patient Relationship to Patient: Absorption Plant Operator Name: Delivery Method: HAND - Hand Delivered Jacqueline Days: Prior Verbal Notification: Recipient Understood Notice: Yes Recipient Signature: Yes Med Rec Note Co-signed by Attending: Coverage Notice Comment: Last DP export: 10/03/18 8:56 a Patient Name: QUITA TERRY Page [id number] at 1201 All edits/amendments must be made on the electronic document DICTATION DATE: 10/04/18 1201 CLIP AND HANGER ATTACHER: LUDY 10/04/18 1201 RPT#: [id number] DC DATE:10/03/18 STATUS: DIS IN [facility] [address] [place] [address] END OF REPORT
== END 2018-10-03 12:30 | DRG 470 ==
LOC: D.MS 09-25 07:30 → D.SDCHOLD 09-25 07:30 → D.MS 09-25 13:25
PROVIDERS: Family Medicine; ADMIT Orthopaedic Surgery; ATTEND Orthopaedic Surgery
PROC: 0SRC0J9 Replacement of Right Knee Joint with Synthetic Substitute, Cemented, Open Approach (ICD-10-PCS; principal; 2018-09-25 09:30)
DX: M17.11 Unilateral primary osteoarthritis, right knee (principal); N39.0 Urinary tract infection, site not specified; I10 Essential (primary) hypertension; I25.10 Atherosclerotic heart disease of native coronary artery without angina pectoris; R00.1 Bradycardia, unspecified; D64.9 Anemia, unspecified

== ENCOUNTER → 2019-05-02 12:23 | Outpatient (CLI) | payer OTHER ==
[~2019-05-02 12:23] MED LIST changes: +DILAUDID2 MG PO; +EDARBYCLOR 40-1 EACH PO; +ELIQUIS2.5 MG PO; +HYDROCO/APAP TAB 10- PO; +KEFLEX500 MG PO; +PRINIVIL20 MG PO
--- NOTE | 2019-05-06 08:28 | EC ---
PATIENT:QUITA TERRY DATE OF SERVICE: 05/02/19 SEX: F MEDICAL RECORD: [id number] DATE OF : 38 LOCATION:D.[facility] AGE OF PATIENT: 78 ADMISSION DATE: 05/02/19 REFERRING PHYSICIAN: INTERPRETING PHYSICIAN: HI SMITH MD ECHOCARDIOGRAM REPORT ECHO CHARGES 4 ECHO COMPLETE Date: 05/02/19 CLINICAL DIAGNOSIS: HTN/LVH HX OF MR/TR/AI ECHOCARDIOGRAPHIC MEASUREMENTS (adult normal given) AC root (d.<3.7cm) 4.0 cm LV Septum d (<1.2 cm> 1.6 cm Valve Excursion 1.7 cm LV Septum (systole) 1.5 cm Left Atria (s.<4.0cm> 4.0 cm LVPW d(<1.2cm) 1.5 cm RV (d.<2.3cm) 3.2 cm LVPW (sytole) 1.9 cm LV diastole(<5.6CM) 5.0 cm MV E-F(>70mm/sec) cm LV systole 2.5 cm LVOT Diameter 1.9 cm MV exc.(>10mm) 1.4 cm Est.ejection fraction (50-75%) % DOPPLER: LVIT cm/sec A 97.0 cm/sec E 63.0 cm/sec LA cm/sec RVSP 38 mmHg LVOT 126 cm/sec AOP1/2T m/s Asc. Ao 161 cm/sec RVOT 104 cm/sec RA cm/sec PA 126 cm/sec AV Gradient Peak 10.34mmHg AV Mean 5.24 mmHg AV Area 2.3 cm MV Gradient Peak 3.62 mmHg MV Mean 0.88 mmHg MV Area cm COMMENTS: Electric Shipyard Operator: 2 DYLLAN POE Tow Truck Dispatcher: 3 Dr. Dinero TAPE# PACS Pericardial Effusion N DATE OF SERVICE: Adequate 2D, color flow imaging, spectral Doppler, and M-mode. LVH is present. LV internal dimension is normal. Wall motion is normal. EF is greater than or equal to 55%. Aortic valve is tricuspid. No evidence of stenosis by Doppler interrogation. There is mild AI with color flow imaging. Left atrium is normal. Mitral valve shows no prolapse. Mild MR. Right-sided chambers grossly normal. Mild TR. ECHOCARDIOGRAM REPORT [id number] QUITA TERRY TRANSINT:[id number] Voice Confirmation ID: [id number] DOCUMENT ID: [id number] HI SMITH MD at 0828 CC: [id number] DICTATION DATE: 05/03/19 144 FRUIT BAR MAKER: 05/03/19 2305 DEP CLI 05/02/19 [place] [id number] [place] [id number]
== END | disposition home or self-care (01) ==
LOC: D.HCCECHO 12:23
PROVIDERS: ATTEND Internal Medicine Interventional Cardiology
DX: I10 Essential (primary) hypertension (principal)

== ENCOUNTER 2019-08-07 16:41 | Emergency (ER) | payer OTHER ==
[~2019-08-07] VITALS: Ht 165.1 cm; Wt 81.8 kg
[2019-08-07 16:46] VITALS: Ht 165.1 cm; Wt 81.8 kg
[2019-08-07] MEDS ORDERED: SYNTHROID137 MCG PO (16:51)
[2019-08-07] MEDS ORDERED: TRAVATAN Z2.5 ML EACH EYE (16:51)
[2019-08-07] MEDS ORDERED: CARDURA4 MG (16:55)
[2019-08-07 17:10] LABS: BASOPHILS 0.2 % (0-2); HEMATOCRIT 37.4 % (36.0-48.0); HEMOGLOBIN 12.8 g/dL (12-16); IMMATURE GRANULOCYTES 0.2 % (0-5); LYMPHOCYTES 20.8 % (15-50); MCH 31.9 pg (26.0-34.0); MCHC 34.2 g/dL (31.0-37.0); MCV 93.3 fL (80.0-100.0); MEAN PLATELET VOLUME 10.5 fL (7.4-10.4); MONOCYTES 9.2 % (2-11); NEUTROPHILS 68.6 % (40-80); PLATELET COUNT 173 10x3/uL (130-400); RBC 4.01 10x6/uL (4.00-5.40); RDW 12.3 % (11.5-14.5)
[2019-08-07 17:17] LABS: CALC OSMOLALITY 273 mosm/kg (275-300); CHLORIDE - SERUM 98 mmol/L (98-107); GLUCOSE 97 mg/dL (74-106); POTASSIUM - SERUM 3.4 mmol/L (3.5-5.1); SODIUM 136 mmol/L (136-145); UREA NITROGEN 19 mg/dL (7-18); eGFR NON AFRICAN AMERICAN 56 mL/min (90-120)
[2019-08-07 17:26] LABS: ALBUMIN 3.8 g/dL (3.4-5.0); ALKALINE PHOSPHATASE 75 U/L (30-120); ALT (SGPT) 19 U/L (10-68); BILIRUBIN - TOTAL 0.56 mg/dL (0.2-1.3)
[2019-08-07 17:27] LABS: TROPONIN-I < 0.017 ng/mL (0.000-0.060)
[2019-08-07 19:16] VITALS: BP 174/62
== END 2019-08-07 19:16 | disposition home or self-care (01) ==
LOC: D.ER 16:41
PROVIDERS: Family Medicine
DX: I10 Essential (primary) hypertension (principal); E03.9 Hypothyroidism, unspecified; R51 Headache

== ENCOUNTER 2019-12-24 11:06 | Day surgery (SDC) | payer OTHER ==
[~2019-12-24] VITALS: Ht 165.1 cm; Wt 85.0 kg
--- NOTE | ~2019-12-24 | OP ---
PATIENT NAME: QUITA TERRY MEDICAL RECORD: [id number] :[birth year] LOCATION:D.[facility] ADMISSION DATE: SURGEON: SHAWN HAY MD DATE OF OPERATION: 12/24/2019 PREOPERATIVE DIAGNOSIS: Sick sinus syndrome with pauses. POSTOPERATIVE DIAGNOSIS: Sick sinus syndrome with pauses. PROCEDURE: 1. Left subclavian vein dual lead pacemaker placement. 2. Fluoroscopic interpretation. SURGEON: Shawn Hay MD CO-SURGEON: Korey Dinero MD REPORT OF PROCEDURE: The patient's left chest was prepped and draped in sterile fashion. A 20 mL of 1% lidocaine with epinephrine was infused into the surrounding tissues. A transverse incision was made on the left superior lateral chest and a subcutaneous pouch was made over the pectoral fascia. Needle was used to cannulate the left subclavian vein times 2 and guidewires were advanced with ease. Fluoro was used to note that the wires were in good position in the venous system. The dilator trocar devices were placed over the wires and the wires and dilators were removed. The leads were advanced through the trocars until they rest in the superior vena cava. At this point, Dr. Dinero positioned the leads appropriately in atrium and ventricle. Once these were noted to be in good position and they were sutured into place with 2-0 Ti-Cron, the leads were then affixed to the pacemaker, which was placed in the subcutaneous pouch and sutured to the pectoral fascia with a single interrupted 2-0 Ti-Cron. The wound bed was irrigated out with normal saline. We reapproximated the subcutaneous tissues with interrupted 3-0 Vicryl and skin was closed with running subcutaneous 5-0 Monocryl. COMPLICATIONS: None. CONDITION: Stable. ANESTHESIA: General endotracheal and local. BLOOD LOSS: Minimal. TRANSINT:[id number] Voice Confirmation ID: [id number] DOCUMENT ID: [id number] SHAWN HAY MD CC: [id number] DICTATION DATE: 12/24/19 1453 COVER INSPECTOR: 12/24/19 2241 [facility] 12/24/19 [facility] [address] [place] [id number]
--- NOTE | ~2019-12-24 | HEMODYNAMI ---
PATIENT:QUITA TERRY MEDICAL RECORD: [id number] : 38 LOCATION:[facility] ADMISSION DATE: 12/24/19 Generatedon:12/24/201914:59 Patient name: QUITA TERRY Patient #: [id number] SSN: [id number] : 1940 Date of study: 12/24/2019 Page: Of Hemodynamic Procedure Report Patient Data Patient Demographics Procedure consent was obtained First Name: QUITA Gender: Female Last Name: MARA : 1940 Middle Initial: C Age: 79 year(s) Patient #: [id number] Race: SSN: [id number] Additional ID: [id number] Contact details [address]: [address] [place] [address] State: [place] City: [place] Zip code: [address] Past Medical History Allergies Allergen Reaction Date Comments Reported Aspirin 09/06/2017 Aspirin 01/04/2018 Other allergy 12/24/2019 ASA Admission Admission Data Admission Date: 12/24/2019 Admission Time: 11:06 Arrival Date: 12/24/2019 Arrival Time: 0:00 Admit Source: Other Insurance Payor: Private health insurance [facility] #: [id number] Height (in.): 64.96 BSA: 1.92 (m2) Height (cm.): 165 BMI: 31.22 (kg/m2) Weight (lbs.): 187.39 Weight (kg.): 85 Lab Results Lab Result Date: 12/24/2019 Lab Result Time: 0:00 Biochemistry Name Units Result Min Max BUN mg/dl 22 --(----)-* 7 18 Creatinine mg/dl 1.1 --(--*-)-- 0.6 1.3 eGFR ml/min 51 *-(----)-- 90 120 NONAFRICAN Procedure Procedure Types Cath Procedure Diagnostic Procedure PPM/ICD PPM Dual Implant Sedation Charges Moderate Sedation up to 15 minutes Procedure Description Procedure Date Procedure Date: 12/24/2019 Procedure Start Time: 14:26 Procedure End Time: 14:51 Procedure Staff Name Function Korey Dodd MD Performing Physician Alfonso Fraser MD Assisting physician Ric Tavarez RN Nurse Franci Castro RT Monitor Mary Gilliam RT Scrub Isaura Cordero RT Assembler Garment Form Procedure Data Cath Procedure Fluoroscopy Diagnostic fluoroscopy Total fluoroscopy Time: 1.2 time: 1.2 min min Diagnostic fluoroscopy Total fluoroscopy dose: dose: 13.23 mGy 13.23 mGy Estimated blood loss: 10 ml Procedure Complications No complications Procedure Medications Medication Administration Route Dosage Ancef (1Gm/50ml NS) I.V.P.B 1 g Ancef Irrigation Topical 1 g (1gm/500ml NS) Oxygen etCO2 Nasal cannula 2 l/min Lidocaine 1% added to field 20 Versed I.V. 1 mg Fentanyl I.V. 50 mcg Versed I.V. 1 mg Fentanyl I.V. 50 mcg Versed I.V. 1 mg Fentanyl I.V. 50 mcg Versed I.V. 1 mg Fentanyl I.V. 50 mcg Hemodynamics Rest BSA: 1.92 (m2) O2 Consumption: Estimated: 152.99 (ml/min) O2 Consumption indexed : Estimated:79.68 (ml/min/m) Heart Rate: 43 (bpm) Snapshots Pre Cath Intra NCS Post Cath Vital Signs Time Heart Resp SPO2 etCO2 NIBP (mmHg) Rhythm Pain Sedation Rate (ipm) (%) (mmHg) Status Level (bpm) 14:02:02 40 11 100 35.9 Out of range SB (Missing) 10(A) 14:05:43 40 10 99 38.9 211/80(166) SB (Missing) 10(A) 14:10:28 42 10 99 37.4 202/81(166) SB (Missing) 10(A) 14:16:12 42 10 99 38.9 196/85(160) SB (Missing) 10(A) 14:20:43 39 10 99 36.6 181/77(154) SB (Missing) 10(A) 14:25:15 39 11 99 32.9 197/81(170) SB (Missing) 10(A) 14:30:49 43 10 94 36.7 183/78(145) SB (Missing) 9(A) 14:35:48 50 12 97 34.4 Measuring SB (Missing) 9(A) 14:41:36 58 11 98 33.6 187/102(152) SB (Missing) 9(A) 14:46:06 60 8 99 35.9 194/96(158) SB (Missing) 9(A) 14:51:06 61 11 98 32.1 Measuring SB (Missing) 9(A) 14:51:53 62 9 98 29.9 203/94(161) SB (Missing) 10(A) Medications Time Medication Route Dose Verified Delivered Reason Notes Effectiv eness by by 14:06:31 Ancef I.V.P.B 1 g Korey Buffie used for (1Gm/50ml St Jim Tavarez RN procedure NS) 14:06:39 Ancef Topical 1 g Korey Pentecostal used for Irrigation St Jim Fraser MD procedure (1gm/500ml NS) 14:06:49 Oxygen etCO2 2 Korey Buffie used for Nasal l/min St Jim Tavarez RN procedure cannula 14:06:59 Lidocaine added 20ml Korey Hamilton for local 1% to vial St Jim Fraser MD anesthetic field x 2 14:24:04 Versed I.V. 1 mg Korey Buffie for Ju Tavarez RN sedation 14:24:10 Fentanyl I.V. 50 Korey Buffie for [facility] Ju Tavarez RN sedation 14:26:56 Versed I.V. 1 mg Korey Buffie for Ju Tavarez RN sedation 14:27:00 Fentanyl I.V. 50 Korey Buffie for [facility] Ju Tavarez RN sedation 14:29:52 Versed I.V. 1 mg Korey Buffie for Ju Tavarez RN sedation 14:29:56 Fentanyl I.V. 50 Korey Buffie for [facility] Ju Tavarez RN sedation 14:35:27 Versed I.V. 1 mg Korey Buffie for Ju Tavarez RN sedation 14:35:31 Fentanyl I.V. 50 Korey Buffie for [facility] Ju Tavarez RN sedation Procedure Log Time Note 12:47:46 Procedure Status PPM/ Gen Change/ Lead Revision/ Temp. 12:47:47 Time tracking: Regular hours (M-F 7:00 - 5:00) 12:54:07 Plan of Care:Hemodynamics will remain stable., Cardiac rhythm will remain stable., Comfort level will be maintained., Respiratory function will remain adequate., Patient/ family verbilizes understanding of procedure., Procedure tolerated without complication., Recovers from procedure without complications.. 13:28:57 Patient allergic to Other allergyASA 13:30:01 Patient Weight : 187.39 lbs 13:30:10 Patient Height : 64.96 inches 13:41:26 Lab Result : BUN 22 mg/dl 13:41:26 Lab Result : eGFR NONAFRICAN 51 ml/min 13:41:26 Lab Result : Creatinine 1.1 mg/dl 13:41:49 Arrival Date: 12/24/2019 12:00:00 AM 13:41:50 Admit Source: Other 13:42:00 Insurance Payor : Private health insurance 13:44:19 Isaura Cordero RT(R) sent for patient. Start room use. 13:44:42 H&P Date Dictated: 12/17/2019 Within 30 days and on chart.. 13:44:43 Pre-procedure instructions explained to patient. 13:44:43 Pre-op teaching completed and patient verbalized understanding. 13:44:45 Patient NPO since Midnight. 13:44:53 Lab results completed and on chart. 13:44:57 Stress Test: no; N/A ? 13:44:59 Alarms reviewed by R. N. 13:44:59 Sharps counted by scrub and verified by R.N. 13:46:18 Patient received from Pre/Post Procedure Room to CCL 3 Alert and oriented. Tansferred to table in Supine position. 13:46:21 Signed procedure consent form obtained from patient. 13:46:22 Warm blankets applied, and caroline hugger turned on for patient comfort. 13:46:22 Correct patient and procedure confirmed by team. 13:46:23 ECG and BP/O2 sat monitors applied to patient. 13:46:27 Family unavailable. 13:51:52 Vital chart was started 13:53:39 Physician paged 13:53:46 Is the patient allergic to Iodine/contrast media? No. 13:54:06 Was the patient premedicated? No 13:54:07 Is patient on blood thinner?No 13:54:09 Patient diabetic? No. 13:54:11 If diabetic: On Metformin? N/A 13:54:13 Patient not . Patient is over age 55. 13:54:14 ----Pre-sedation anethsthesia assessment.---- 13:54:18 Previous problem with sedation/anesthesia? No ? 13:54:19 Snore? Yes 13:54:20 Sleep apnea? No 13:54:21 Deviated septum? No 13:54:23 Opens mouth fully? Yes 13:54:25 Sticks out tongue? Yes 13:54:28 Airway obstruction? No ? 13:54:32 Dentures? No ? 13:54:35 Pre procedure: right dorsailis pedis pulse 2+ Normal; easily identifiable; not easily obliterated 13:54:37 Patient pain scale 0/10 ?. 13:54:44 IV patent on arrival in left antecubital with 0.9% NaCl at [facility]. 13:55:04 Left chest area was prepped with chlora-prep and draped in sterile fashion 13:55:13 Use device set SATNAM PPM 13:55:55 2-0 Ticron Multipack ([id number]) opened to sterile field. 13:55:56 3-0 Vicryl Single Pack [id number] opened to sterile field. 13:55:57 5-0 Monocryl PS2 [id number] opened to sterile field. 13:55:57 Cautery Tip Supervisor Line Department opened to sterile field. 13:55:58 Cautery Pushbutton Pencil opened to sterile field. 13:55:58 Mepilex Dressing ([id number]) opened to sterile field. 13:57:18 Physician responded to page. 13:59:30 Full Disclosure recording started 13:59:37 Rhythm: sinus bradycardia 13:59:40 Baseline sample Acquired. 14:06:31 Ancef (1Gm/50ml NS) 1 g I.V.P.B was administered by Ric Tavarez RN; used for procedure; Verbal order read back and verified. 14:06:39 Ancef Irrigation (1gm/500ml NS) 1 g Topical was administered by Alfonso Fraser MD; used for procedure; Verbal order read back and verified. 14:06:49 Oxygen 2 l/min etCO2 Nasal cannula was administered by Ric Tavarez RN; used for procedure; Verbal order read back and verified. 14:06:59 Lidocaine 1% 20ml vial x 2 added to field was administered by Alfonso Fraser MD; for local anesthetic; Verbal order read back and verified. 14:23:11 Physician arrived 14::30 --------ALL STOP TIME OUT------ 14::30 Final Timeout: patient, procedure, and site verified with staff and physician. All members of the team are in agreement. 14:23:34 Left chest site verified by team. 14:23:38 Fire Safety Assessment: A--An alcohol-based skin anteseptic being used preoperatively., C--Open oxygen or nitrous oxide is being used., D--An ESU, laser, or fiber-optic light is being used. 14:23:43 Physical assessment completed. ASA score P 2 - A patient with mild systemic disease as per Korey Dodd MD. 14:23:48 Sedation plan: IV Moderate Sedation Medication:Versed, Fentanyl 14:24:04 Versed 1 mg I.V. was administered by Ric Tavarez RN; for sedation; Verbal order read back and verified. 14:24:04 Med[employer] labor service representative PHOENIX GARCIA present for procedure. 14:24:10 Fentanyl 50 mcg I.V. was administered by Ric Tavarez RN; for sedation; Verbal order read back and verified. 14:24:13 Pre sharps counted by scrub and verified by RN: Sutures: 7; Sponges: 5; Stick needles: 2; Skin needles: 2; Blade: 1; Cautery: 1 14:24:17 Grounding pad site Left thigh. 14:24:18 Grounding pad site free from injury. 14:26:00 Procedure started. 14:26:20 Lidocaine 1% was administered to left subclavicular area by Alfonso Fraser MD . 14:26:56 Versed 1 mg I.V. was administered by Ric Tavarez RN; for sedation; Verbal order read back and verified. 14:27:00 Fentanyl 50 mcg I.V. was administered by Ric Tavarez RN; for sedation; Verbal order read back and verified. 14:28:06 Incision made to left subclavicular area. 14:29:52 Versed 1 mg I.V. was administered by Ric Tavarez RN; for sedation; Verbal order read back and verified. 14:29:56 Fentanyl 50 mcg I.V. was administered by Ric Tavarez RN; for sedation; Verbal order read back and verified. 14:31:26 Generator pocket made/opened. 14:31:33 Left subclavian vein accessed with 7Fr Peel Away Sheath. 14:32:12 Medtronic 4074-52 PPM Lead opened to sterile field. 14:32:13 Medtronic 4574-45 PPM Lead opened to sterile field. 14:34:01 Ventricular lead positioned. 14:35:27 Versed 1 mg I.V. was administered by Ric Tavarez RN; for sedation; Verbal order read back and verified. 14:35:29 Ventricular lead tested. 14:35:31 Fentanyl 50 mcg I.V. was administered by Ric Tavarez RN; for sedation; Verbal order read back and verified. 14:36:33 Atrial lead positioned. 14:36:37 Atrial lead tested. 14:37:33 Peel-a-way sheath was split and removed. 14:38:24 Medtronic Advisa MRI PPM Dual Generator [id number] opened to sterile field. 14:39:22 Ventricular lead attachment was completed with 2-0 ticron. 14:39:25 Ventricular lead attachment was completed with 2-0 ticron. 14:39:38 PPM Dual was attached to lead(s) and inserted into pocket. 14:40:06 Generator was sutured in place with 2-0 ticron. 14:42:12 Device pocket was irrigated with Ancef. 14:42:45 Subcutaneous closure was completed with 3-0 vicryl. 14:43:42 Skin closure was completed with 5-0 monocryl. 14:47:00 Post sharps counted by scrub and verified by RN: Sutures: 2; Sponges: 5; Stick needles: 2; Skin needles: 2; Blade: 1; Cautery: 1 14:47:19 Lt Chest incision was dressed with Mepilex dressing. 14:47:38 Procedure ended.(Physican Out) 14:47:48 Fluoroscopy time 01.20 minutes. 14:47:57 Fluoroscopy dose: 13.23 mGy 14:47:57 Flurop Dose total: 13.23 14:48:04 Dose Area Product 1852 mGy/cm. 14:48:07 Sharps counted by scrub and verified by R.N. 14:48:09 Post Procedure Pulses reassessed and unchanged 14:48:13 Post procedure: right dorsailis pedis pulse 2+ Normal; easily identifiable; not easily obliterated. 14:48:16 Post-procedure physical assessment completed. ASA score P 2 - A patient with mild systemic disease as per Korey Dodd MD. 14:48:25 Post procedure rhythm: sinus rhythm 14:48:28 Estimated blood loss: 10 ml 14:48:29 Post procedure instruction explained to patient.Patient verbalizes understanding. 14:48:30 Patient needs reinforcement of post procedure teaching. 14:49:02 Procedure type changed to Cath procedure, Diagnostic procedure, PPM/ICD, PPM Dual Implant, Sedation Charges, Moderate Sedation up to 15 minutes 14:49:43 Procedure and supply charges have been captured, reviewed, submitted and are correct. 14:49:48 Procedure Complication : No complications 14:49:55 Operative report dictated upon procedure completion. 14:49:56 See physician's report for complete and final results. 14:49:58 Report given to Pre/Post Procedure Room. 14:51:19 Patient transfered to Pre/Post Procedure Room with Stretcher. 14:51:34 Vital chart was stopped 14:51:37 Procedure ended. 14:51:37 Full Disclosure recording stopped 14:51:42 End room use (Document Last) Device Usage Item Name Manufacture Quantity Catalog Hospital Part Current Minimal Lot# / Number Charge Number Stock Stock Serial# Code 2-0 Ticron Ethicon 6 [id number] 807613 64122 [id number] 5 Multipack ([id number]) 3-0 Vicryl Ethicon 1 [id number] 077650 539873 018727 5 Single Pack [id number] 5-0 Monocryl Ethicon 1 [id number] [id number] 463720 753569 5 PS2 Y495G Cautery Tip Microtek 1 [id number] 897207 147950 219948 5 Super[employer] Cautery Microtek 1 [id number] 200887 35790 713266 5 [employer] Pencil Mepilex Cardinal 1 [id number] 304548 224214 698103 5 [facility] ([id number]) Medtronic Medtronic 1 4074-52 730123 245391 669222 5 4074-52 PPM [id number] Lead EXP: 02/23/2020 Medtronic Medtronic 1 4574-45 [id number] 381219 405086 5 4574-45 PPM [id number] Lead EXP: 03/06/2020 Medtronic Medtronic 1 [id number] [id number] 614360 [id number] 5 Advisa MRI [id number] PPM Dual EXP: Generator 04/13/2021 [id number] Signature Audit Tower Stage Time Signature Unsigned Intra-Procedure 12/24/2019 Franci Castro 2:52:05 PM RT(R) Intra-Procedure 12/24/2019 Ric Tavarez RN 2:52:47 PM Intra-Procedure 12/24/2019 Korey Montiel 2:58:57 PM Jim [id number] [place] [address]
[~2019-12-24 11:06] MED LIST changes: +CARDURA4 MG; +SYNTHROID137 MCG PO; +TRAVATAN Z2.5 ML EACH EYE
[2019-12-24] MEDS ORDERED: PRED-FORTE 1% OP5 ML EACH EYE (11:22)
[2019-12-24] MEDS ORDERED: XALATAN 0.0052.5 ML EACH EYE (11:23)
[2019-12-24] MEDS ORDERED: DORZOLAMIDE-TI1 EACH EACH EYE (11:23)
[2019-12-24 11:34] VITALS: BP 135/60; Ht 165.1 cm; Wt 85.0 kg
[2019-12-24 12:00] LABS: ANION GAP 10.6 mmol/L (8-16); CALCIUM 8.9 mg/dL (8.5-10.1); CARBON DIOXIDE 28.3 mmol/L (21.0-32.0); CREATININE - SERUM 1.1 mg/dL (0.6-1.3)
[2019-12-24 12:02] LABS: APTT 26.1 SECONDS (22.8-39.4); INR 0.99 (0.85-1.17); PROTIME 13.1 SECONDS (11.6-15.0)
[2019-12-24 12:03] LABS: POTASSIUM - SERUM 3.9 mmol/L (3.5-5.1)
--- NOTE | 2019-12-24 15:00 | NUR ---
PT RECEIVED BACK TO ROOM VIA STRETCHER FROM PACEMAKER PLACEMENT. PT AWAKE AND ALERT, DENIES PAIN OR DISCOMFORT AT THIS TIME. XRAY AT BEDSIDE, CHEST XRAY COMPLETED PER ORDERS. IV PATENT INFUSING VIA ORDERS TO L HAND. 1310 PT PLACED ON CARDIAC MONITORS, HR NR PACED AT 60, BP 203/86, RR 12, SAT 96 ON ROOM AIR. MEPILEX DRESSING TO L UPPER CHEST, CDI NO S/S BLEEDING OR SWELLING NOTED. SANDWICH TRAY AND DRINK SERVED PER REQUEST. PT DENIES OTHER NEEDS AT THIS TIME. CALL LIGHT IN REACH, DAUGHTER AT BS
--- NOTE | 2019-12-24 15:31 | NUR ---
PT SITTING UP EATING, DENIES PAIN OR DISCOMFORT. VSS, HR 60, BP 163/81, RR 15. MEPILEX DRESSING CDI. CALL LIGHT IN REACH
[2019-12-24 16:20] LABS: HEMATOCRIT 35.6 % (36.0-48.0); HEMOGLOBIN 12.1 g/dL (12-16); MCH 32.5 pg (26.0-34.0); MCV 95.7 fL (80.0-100.0); MEAN PLATELET VOLUME 12.5 fL (7.4-10.4); RBC 3.72 10x6/uL (4.00-5.40); RDW 12.8 % (11.5-14.5); WBC 3.7 10x3/uL (4.8-10.8)
--- NOTE | 2019-12-24 16:20 | NUR ---
MEPLIX DRESSING CDI NO S/S HEMATOMA OR BLEEDING. DISCHARGE INSTRUCTIONS REVIEWED W PT AND DAUGHTER, THEY VERBALIZED UNDERSTANDING. IV REMOVED W CATH INTACT, MONITORS REMOVED. L ARM REMAINS IN SLING, PT UP TO DRESS FOR DISCHARGE.
--- NOTE | 2019-12-24 16:38 | NUR ---
PT AMBULATED TO BR, VOIDING W/O DIFFICULITY. PT DISCHARGED VIA WC TO DAUGHTER WAITING IN PRIVATE VEHICLE. PT HAD ALL BELONGINGS AND DISCHARGE PAPERWORK
--- NOTE | 2019-12-25 09:11 | OP ---
PATIENT NAME: QUITA TERRY MEDICAL RECORD: [id number] :38 LOCATION:[facility] ADMISSION DATE: SURGEON: HI SMITH MD DATE OF OPERATION: 12/24/2019 PROCEDURE: Lead portion of permanent pacer placement. INDICATION: Sick sinus syndrome with maria fernanda escape. SURGEON: Dr. Fraser. DESCRIPTION OF PROCEDURE: After left subclavian was cannulated via modified Seldinger technique via Dr. Fraser, first under fluoroscopic guidance, I placed the RV lead in the RV apex without difficulty. After adequate R waves and thresholds were obtained, again under fluoroscopic guidance, I placed right atrial lead in the right atrial appendage without difficulty. After adequate R waves and thresholds were obtained, leads attached to appropriate poles of the generator and the pocket was closed via Dr. Fraser. IMPRESSION: Successful lead portion of permanent pacemaker placement. COMPLICATIONS: None. ESTIMATED BLOOD LOSS: Minimal. DISPOSITION: To the floor, stable. TRANSINT:[id number] Voice Confirmation ID: [id number] DOCUMENT ID: [id number] HI SMITH MD at 0911 CC: [id number] DICTATION DATE: 12/24/19 1444 SALES RECRUITER: 12/24/19 2235 [facility] 12/24/19 [id number] [place] [address]
== END 2019-12-24 16:35 | disposition home or self-care (01) ==
LOC: D.CATH 11:06
PROVIDERS: ATTEND Internal Medicine Interventional Cardiology
DX: I49.5 Sick sinus syndrome (principal); I10 Essential (primary) hypertension; R53.83 Other fatigue